=== PATIENT | male | born 1950 | race Caucasian/White ===

== ENCOUNTER 2017-02-17 10:15 | Emergency (ER) | payer MEDICARE, OTHER ==
[~2017-02-17] VITALS: Ht 167.6 cm; Wt 80.0 kg
[~2017-02-17 10:15] MED LIST: [UNRECOGNIZED DRUG - REMARK]
[2017-02-17 10:17] VITALS: BP 179/86; PULSE 58; RESP 20; TEMP 98; O2SAT 97
[2017-02-17] MEDS ORDERED: LISI30TA4 PO ×2 (10:28)
--- NOTE | 2017-02-17 10:38 | PD ---
HPI Chief Complaint: GI Complaint Time Seen by Provider: 10:38 Travel History International Travel<30 days: No Contact w/Intl Traveler<30days: No Traveled to known affect area: No History of Present Illness HPI 66-year-old male came to the emergency room with history of vomiting for past 3 days. Patient says almost every time he eats after an hour he vomits it out. He has been able to keep some fluid and some solids down. However since it's not getting better he decided to come to the emergency room. He does not have a primary care doctor. No history of diarrhea. He has been having normal bowel movement. Vital signs are stable. No history of blood in his vomit. [facility] Past Medical History Narrative Medical List of his past medical, surgical, social and family history is reviewed from the nursing note Diminished Hearing: No Seizures: Yes Tetanus Vaccination: > 5 Years Past Surgical History Abdominal Surgery: Yes (RT HERNIA REPAIR) Social History Alcohol Use: Yes (1 PER 8 MON) Tobacco Use: No Substance Use: Yes (pot) Allergies-Medications (Allergen,Severity, Reaction): Coded Allergies: acetaminophen (Unverified Allergy, Mild, SICK TO MY STOMACH, 02/17/17) Uncoded Allergies: CODEINE (Allergy, Unknown, 02/12/03) Comments List of his allergies reviewed from the nursing note. Reported Meds & Prescriptions Reported Meds & Active Scripts Active Zofran Odt (Ondansetron Odt) 4 Mg Tab 4 Mg SL Q6HR PRN Protonix (Pantoprazole Sodium) 40 Mg Tab 40 Mg PO DAILY [Mri L. Shoulder] MRI OF L. SHOULDER TO EVALUATE FOR POSSIBLE ROTATOR CUFF INJURY Reported Lisinopril 30 Mg Tab 30 Mg PO DAILY Narrative Medication List of his home medications reviewed from the nursing note. Review of Systems Except as stated in HPI: all other systems reviewed are Neg Physical Exam Narrative GENERAL: Awake, alert, mild distress SKIN: Focused skin assessment warm/dry. HEAD: Atraumatic. Normocephalic. EYES: Pupils equal and round. No scleral icterus. No injection or drainage. ENT: No nasal bleeding or discharge. Mucous membrane is dry, tongue coated NECK: Trachea midline. No JVD. CARDIOVASCULAR: Regular rate and rhythm. No murmur appreciated. RESPIRATORY: No accessory muscle use. Clear to auscultation. Breath sounds equal bilaterally. GASTROINTESTINAL: Abdomen soft, non-tender, nondistended. Hepatic and splenic margins not palpable. MUSCULOSKELETAL: No obvious deformities. No clubbing. No cyanosis. No edema. NEUROLOGICAL: Awake and alert. No obvious cranial nerve deficits. Motor grossly within normal limits. Normal speech. PSYCHIATRIC: Appropriate mood and affect; insight and judgment normal. Data Data Last Documented VS Vital Signs Date Time Temp Pulse Resp B/P (MAP) Pulse Ox O2 Delivery O2 Flow Rate FiO2 02/17/17 12:06 02/17/17 10:58 98 02/17/17 10: 98.0 58 20 Room Air Orders Orders Complete Blood Count With Diff (02/17/17 10:40) Comprehensive Metabolic Panel (02/17/17 10:40) Lipase (02/17/17 10:40) Urinalysis - C+S If Indicated (02/17/17 10:40) Ct Abd/Pel W/O Iv Contrast (02/17/17 10:40) Iv Access Insert/Monitor (02/17/17 10:40) Ecg Monitoring (02/17/17 10:40) Oximetry (02/17/17 10:40) Ondansetron Inj (Zofran Inj) (02/17/17 10:45) Sodium Chlor 0.9% 1000 Ml Inj (Ns 1000 M (02/17/17 10:40) Sodium Chloride 0.9% Flush (Ns Flush) (02/17/17 10:45) Electrocardiogram (02/17/17 10:40) Drug Screen, Random Urine (02/17/17 10:45) Pantoprazole (Protonix) (02/17/17 12:00) Labs Laboratory Tests Test 02/17/17 10:55 White Blood Count 9.0 TH/MM3 Red Blood Count 4.44 MIL/MM3 Hemoglobin 14.4 GM/DL Hematocrit 41.4 % Mean Corpuscular Volume 93.2 FL Mean Corpuscular Hemoglobin 32.5 PG Mean Corpuscular Hemoglobin Concent 34.8 % Red Cell Distribution Width 13.8 % Platelet Count 183 TH/MM3 Mean Platelet Volume 9.3 FL Neutrophils (%) (Auto) 61.5 % Lymphocytes (%) (Auto) 28.4 % Monocytes (%) (Auto) 7.2 % Eosinophils (%) (Auto) 2.3 % Basophils (%) (Auto) 0.6 % Neutrophils # (Auto) 5.5 TH/MM3 Lymphocytes # (Auto) 2.5 TH/MM3 Monocytes # (Auto) 0.6 TH/MM3 Eosinophils # (Auto) 0.2 TH/MM3 Basophils # (Auto) 0.1 TH/MM3 CBC Comment DIFF FINAL Differential Comment Urine Color YELLOW Urine Turbidity CLEAR Urine pH 6.5 Urine Specific [place] 1.026 Urine Protein TRACE mg/dL Urine Glucose (UA) NEG mg/dL Urine Ketones NEG mg/dL Urine Occult Blood NEG Urine Nitrite NEG Urine Bilirubin NEG Urine Urobilinogen 2.0 MG/DL Urine Leukocyte Esterase SMALL Urine RBC 1 /hpf Urine WBC 6 /hpf Urine Mucus FEW /lpf Microscopic Urinalysis Comment CULT NOT INDICATED Blood Urea Nitrogen 13 MG/DL Creatinine 1.21 MG/DL Random Glucose 100 MG/DL Total Protein 6.5 GM/DL Albumin 3.7 GM/DL Calcium Level 8.9 MG/DL Alkaline Phosphatase 56 U/L Aspartate Amino Transf (AST/SGOT) 14 U/L Alanine Aminotransferase (ALT/SGPT) 17 U/L Total Bilirubin 0.4 MG/DL Sodium Level 143 MEQ/L Potassium Level 4.7 MEQ/L Chloride Level 108 MEQ/L Carbon Dioxide Level 31.5 MEQ/L Anion Gap 4 MEQ/L Estimat Glomerular Filtration Rate 60 ML/MIN Lipase 204 U/L Urine Opiates Screen NEG Urine Barbiturates Screen NEG Urine Amphetamines Screen NEG Urine Benzodiazepines Screen NEG Urine Cocaine Screen NEG Urine Cannabinoids Screen POS MDM Medical Decision Making Medical Screen Exam Complete: Yes Emergency Medical Condition: Yes Medical Record Reviewed: Yes Interpretation(s) Twelve-lead EKG was reviewed by me. Normal sinus rhythm, left axis deviation, nonspecific ST-T wave changes, poor R-wave progression, bradycardia. Heart rate of 50 bpm. Differential Diagnosis Gastritis, vomiting, dehydration, small bowel obstruction Narrative Course 11:30 AM CBC is back which is within normal limits. Awaiting for the chemistry and CAT scan to be done and resulted. Patient was given IV fluid and nausea medicine. 11:51 AM all the blood test results, UA and CAT scan report is back. Overall everything seems to be within normal limit. Patient will be referred to a GI specialist. I will discharge him home on a prescription for Protonix. Procedures EKG Prior to Arrival: No Diagnosis Primary Impression: Gastritis Qualified Codes: K29.00 - Acute gastritis without bleeding Referrals: Kika Alvarez MD 1 week Additional Instructions: Please return to the ER if the condition worsens or any other new concerns. To dietary restrictions mainly food that her ascitic like citric food, strawberries , tomatoes, ketchup, vinegar addressing etc. Take the medication as per the prescription direction. Call the GI specialist is name and number been given to you to get an appointment. Follow-up with primary care. Med/Other Pt SpecificInfo: Prescription(s) given Scripts Ondansetron Odt (Zofran Odt) 4 Mg Tab 4 MG SL Q6HR Y for Nausea/Vomiting, #10 TAB 0 Refills Prov: Pablo Brandt MD 02/17/17 Pantoprazole (Protonix) 40 Mg Tab 40 MG PO DAILY for Reflux, #30 TAB 0 Refills Prov: Pablo Brandt MD 02/17/17 Disposition: 01 DISCHARGE HOME Condition: Stable Pablo Brandt MD Feb 17, 2017 10:38
[2017-02-17] MEDS ORDERED: SODIUM CHLOR 0.9% 1000 ML INJ 1,000 ML IV SCH (10:40)
[2017-02-17] MEDS ORDERED: SODIUM CHLORIDE 0.9% FLUSH 10 ML FLUSH IV FLUSH PRN (10:45)
[2017-02-17] MEDS ORDERED: ONDANSETRON HCL 4 MG/2 ML VIAL IVP ONE (10:45)
[2017-02-17 10:58] VITALS: O2SAT 98
[2017-02-17 11:24] LABS: AUTOMATED NEUTROPHIL # 5.5 TH/MM3 (1.8-7.7); BASOPHIL # 0.1 TH/MM3 (0-0.2); BASOPHIL % 0.6 % (0.0-2.0); EOSINOPHIL # 0.2 TH/MM3 (0-0.4); EOSINOPHIL % 2.3 % (0.0-4.0); HEMATOCRIT 41.4 % (39.0-51.0); HEMO FLAGS DIFF FINAL; LYMPH % 28.4 % (9.0-44.0); LYMPHOCYTE # 2.5 TH/MM3 (1.0-4.8); MEAN CELL VOLUME 93.2 FL (80.0-100.0); MEAN CORPUSCULAR HEMOGLOBIN 32.5 PG (27.0-34.0); MEAN CORPUSCULAR HGB CONC 34.8 % (32.0-36.0); MONO % 7.2 % (0.0-8.0); NEUT % 61.5 % (16.0-70.0); PLATELET COUNT 183 TH/MM3 (150-450); RED BLOOD COUNT 4.44 MIL/MM3 (4.50-5.90); RED CELL DISTRIBUTION WIDTH 13.8 % (11.6-17.2)
[2017-02-17 11:31] LABS: BLOOD, URINE NEG (NEG); GLUCOSE,URINE NEG (NEG); KETONE, URINE NEG (NEG); MUCUS URINE FEW /lpf (OCC); NITRITE,URINE NEG (NEG); PH, URINE 6.5 (5.0-8.5); URINE COLOR YELLOW (YELLW/STRAW)
--- NOTE | 2017-02-17 11:31 | RADRPT ---
EXAM DATE/TIME: 02/17/2017 11:00 [place] COMPARISON: No previous studies available for comparison. INDICATIONS : Abdominal pain with nausea and vomiting. ORAL CONTRAST: No oral contrast ingested. RADIATION DOSE: 18.25 CTDIvol (mGy) MEDICAL HISTORY : Seizures. SURGICAL HISTORY : None. ENCOUNTER: Initial ACUITY: 2 days PAIN SCALE: 7/10 LOCATION: abdomen TECHNIQUE: Volumetric scanning of the abdomen and pelvis was performed. Using automated exposure control and ad justment of the mA and/or kV according to patient size, radiation dose was kept as low as reasonably achievable to obtain optimal diagnostic quality images. DICOM format image data is available electro nically for review and comparison. FINDINGS: LOWER LUNGS: Minimal right basilar groundglass opacities likely reflecting atelectasis. Small cyst in the inferior right middle lobe. LIVER: Homogeneous density without lesion. There is no dilation of the biliary tree. No calcified gallston es. SPLEEN: Normal size without lesion. PANCREAS: Within normal limits. KIDNEYS: Kidneys are symmetrical in size without evidence for radiopaque renal calculi or hydronephrosis. Ther e is a 2.2 x 1.9 cm cyst in the posterior mid left kidney. Adjacent to this cyst is a subcentimeter i ndeterminate hyperdense exophytic lesion measuring 7 x 7 x 8 mm. ADRENAL GLANDS: Within normal limits. VASCULAR: There is no aortic aneurysm. BOWEL/MESENTERY: Bowel is decompressed which can accentuate the bowel wall. There is asymmetrical apparent wall thicke gabriel of several loops of proximal jejunum in the left upper quadrant. No significant associated mesen teric stranding. No pneumatosis or bowel obstruction. Remaining portions of bowel are unremarkable. A ppendix is visualized and normal in appearance. ABDOMINAL WALL: Small fat-containing periumbilical anterior abdominal wall hernia. RETROPERITONEUM: There is no lymphadenopathy. BLADDER: Bladder is decompressed. REPRODUCTIVE: Nonspecific enlargement of the prostate containing coarse calcifications. INGUINAL: Small fat-containing left inguinal hernia. MUSCULOSKELETAL: Degenerative spondylosis of the lumbar spine. Heterotopic ossification near the left lateral acetabul um likely due to prior injury. CONCLUSION: 1. Limited evaluation of the bowel secondary to lack of IV or oral contrast. However, there is appare nt mild wall thickening involving several loops of proximal jejunum in the left upper quadrant. No as sociated regional mesenteric inflammation. This finding is nonspecific and may be due to peristalsis. However, differential considerations include inflammatory or infectious enteritis. 2. Subcentimeter indeterminate hyperdense exophytic lesion in the posterior mid left kidney which is too small to fully characterize. Statistically, this reflects a hemorrhagic cyst. 3. Ancillary findings include small fat-containing periumbilical hernia, left renal cysts, and small left fat-containing inguinal hernia. Arcenio Hinton MD on February 17, 2017 at 11:12 Board Certified Radiologist. This report was verified electronically.
[2017-02-17 11:38] LABS: COMMENT (UR) CULT NOT INDICATED; CULTURE IF INDICATED CULT NOT INDICATED
[2017-02-17 11:40] LABS: ALT (GPT) 17 U/L (12-78); ANION GAP 4 MEQ/L (5-15); AST (GOT) 14 U/L (15-37); BICARBONATE 31.5 MEQ/L (21.0-32.0); BLOOD UREA NITROGEN 13 MG/DL (7-18); CHLORIDE 108 MEQ/L (98-107); GLOMERULAR FILTRATION RATE 60 ML/MIN (>89); POTASSIUM 4.7 MEQ/L (3.5-5.1); SODIUM (NA) 143 MEQ/L (136-145)
[2017-02-17 11:42] LABS: ALKALINE PHOSPHATASE 56 U/L (45-117); TOTAL BILIRUBIN ADULT 0.4 MG/DL (0.2-1.0)
[2017-02-17] MEDS ORDERED: PROT40TA PO (11:53)
[2017-02-17] MEDS ORDERED: ZOFR4TAB3 SL (11:53)
[2017-02-17] MEDS ORDERED: PANTOPRAZOLE SOD 40 MG DELAYED RELEASE TAB PO ONE (12:00)
--- NOTE | 2017-02-18 11:38 | EKG ---
Date Performed: 02/17/2017 Time Performed: 11:18:20 PTAGE: 66 years EKG: SINUS BRADYCARDIA PATTERN CONSISTENT WITH PULMONARY DISEASE LEFT ANTERIOR FASCICULAR BLOCK ABNORMAL ECG Compared to prior tracing no significant change PREVIOUS TRACING : 01/17/2003 10.32 DOCTOR: Daniel Galvan Interpretating Date/Time 02/18/2017 11:37:10
[2017-02-22] MEDS ORDERED: LEVE500 PO ×2 (22:49)
== END 2017-02-17 12:07 | disposition home or self-care (01) ==
LOC: NEPD 10:15
DX: K29.00 Acute gastritis without bleeding (principal); R00.1 Bradycardia, unspecified; I44.4 Left anterior fascicular block
CPT/HCPCS: 74176; 80053; 80307; 81001; 83690; 85025; 93005; 96374; 99285; J2405; J7030

== ENCOUNTER 2017-02-22 22:41 | Emergency (ER) | payer MEDICARE, OTHER ==
[~2017-02-22] VITALS: Ht 165.1 cm; Wt 82.0 kg
[~2017-02-22 22:41] MED LIST changes: +LISI30TA4 PO; +PROT40TA PO; +ZOFR4TAB3 SL
[2017-02-22 22:46] VITALS: BP 162/78; PULSE 93; RESP 18; TEMP 98.5; O2SAT 97
[2017-02-22] MEDS ORDERED: LEVE500 PO (22:49)
[2017-02-22] MEDS ORDERED: SODIUM CHLOR 0.9% 1000 ML INJ 1,000 ML IV ONE (22:54)
[2017-02-22] MEDS ORDERED: levETIRAcetam 1000 MG INJ 100 ML IV ONE (23:00)
[2017-02-22] MEDS ORDERED: SODIUM CHLORIDE 0.9% FLUSH 10 ML FLUSH IVF PRN (23:00)
--- NOTE | 2017-02-22 23:03 | PD ---
HPI Chief Complaint: Seizure Time Seen by Provider: 22:48 Travel History International Travel<30 days: No Contact w/Intl Traveler<30days: No Traveled to known affect area: No History of Present Illness HPI Patient 66-year-old male with history of hypertension, seizures currently taking Keppra 500 mg, presents to ER after a seizure episode. As per patient's friend, patient is currently staying with her and sleeps on her floor at the home. Reports that she heard a noise in patients room and went to check up on the patient and noticed that he appeared to be convulsing. Reports that patients seizure episode lasted about 1 to 2 minutes. Reports that he was post ictal for about 5-10 minutes after his seizure. Patient had no incontinence of urine or bowel. Patient this time reports that he has been taking Keppra as scheduled, he does see a neurologist for his seizures, reports that last seizure was a few weeks ago. Patient reports no headache or dizziness at this time, denies any chest pain or shortness of breath. Patient reports that "I really feel fine now." PFSH Past Medical History Diminished Hearing: No Seizures: Yes Tetanus Vaccination: > 5 Years Influenza Vaccination: No Past Surgical History Abdominal Surgery: Yes (RT HERNIA REPAIR) Social History Alcohol Use: Yes Tobacco Use: No Substance Use: Yes (POT) Allergies-Medications (Allergen,Severity, Reaction): Coded Allergies: acetaminophen (Verified Allergy, Mild, SICK TO MY STOMACH, 02/22/17) Uncoded Allergies: CODEINE (Allergy, Unknown, 02/12/03) Reported Meds & Prescriptions Reported Meds & Active Scripts Active Protonix (Pantoprazole Sodium) 40 Mg Tab 40 Mg PO DAILY [Mri L. Shoulder] MRI OF L. SHOULDER TO EVALUATE FOR POSSIBLE ROTATOR CUFF INJURY Reported Keppra (Levetiracetam) 500 Mg Tab 500 Mg PO DAILY Lisinopril 30 Mg Tab 30 Mg PO DAILY Review of Systems General / Constitutional: No: Fever Eyes: No: Visual changes HENT: No: Headaches Cardiovascular: No: Chest Pain or Discomfort Respiratory: No: Shortness of Breath Gastrointestinal: No: Abdominal Pain Genitourinary: No: Dysuria Musculoskeletal: No: Pain Skin: No Rash Neurologic: Positive: Seizures, No: Weakness Psychiatric: No: Depression Endocrine: No: Polydipsia Hematologic/Lymphatic: No: Easy Bruising Physical Exam Narrative GENERAL: NAD, Nontoxic SKIN: Focused skin assessment warm/dry. HEAD: Atraumatic. Normocephalic. EYES: Pupils equal and round. No scleral icterus. No injection or drainage. ENT: No nasal bleeding or discharge. Mucous membranes pink and moist. No bite harris to tongue NECK: Trachea midline. No JVD. CARDIOVASCULAR: Regular rate and rhythm. No murmur appreciated. RESPIRATORY: No accessory muscle use. Clear to auscultation. Breath sounds equal bilaterally. GASTROINTESTINAL: Abdomen soft, non-tender, nondistended. Hepatic and splenic margins not palpable. MUSCULOSKELETAL: No obvious deformities. No clubbing. No cyanosis. No edema. NEUROLOGICAL: Awake and alert. No obvious cranial nerve deficits. Motor grossly within normal limits. Normal speech. CN 2-12 grossly intact with no neurological deficits PSYCHIATRIC: Appropriate mood and affect; insight and judgment normal. Data Data Last Documented VS Vital Signs Date Time Temp Pulse Resp B/P (MAP) Pulse Ox O2 Delivery O2 Flow Rate FiO2 02/22/17 23:48 64 18 148/93 (111) 99 Room Air 02/22/17 22:46 98.5 Orders Orders Complete Blood Count With Diff (02/22/17 22:54) Basic Metabolic Panel (Bmp) (02/22/17 22:54) Ecg Monitoring (02/22/17 22:54) Iv Access Insert/Monitor (02/22/17 22:54) Oximetry (02/22/17 22:54) Sodium Chlor 0.9% 1000 Ml Inj (Ns 1000 M (02/22/17 22:54) Sodium Chloride 0.9% Flush (Ns Flush) (02/22/17 23:00) Urinalysis - C+S If Indicated (02/22/17 22:54) Levetiracetam 1000 Mg Inj (Keppra 1000 M (02/22/17 23:00) ^ Seizure Precautions (02/22/17 22:54) Labs Laboratory Tests Test 02/22/17 22:59 02/22/17 23:00 White Blood Count 10.3 TH/MM3 Red Blood Count 4.49 MIL/MM3 Hemoglobin 14.6 GM/DL Hematocrit 42.4 % Mean Corpuscular Volume 94.2 FL Mean Corpuscular Hemoglobin 32.4 PG Mean Corpuscular Hemoglobin Concent 34.4 % Red Cell Distribution Width 13.8 % Platelet Count 180 TH/MM3 Mean Platelet Volume 9.4 FL Neutrophils (%) (Auto) 67.1 % Lymphocytes (%) (Auto) 23.1 % Monocytes (%) (Auto) 7.0 % Eosinophils (%) (Auto) 2.1 % Basophils (%) (Auto) 0.7 % Neutrophils # (Auto) 6.9 TH/MM3 Lymphocytes # (Auto) 2.4 TH/MM3 Monocytes # (Auto) 0.7 TH/MM3 Eosinophils # (Auto) 0.2 TH/MM3 Basophils # (Auto) 0.1 TH/MM3 CBC Comment DIFF FINAL Differential Comment Blood Urea Nitrogen 16 MG/DL Creatinine 1.47 MG/DL Random Glucose 85 MG/DL Calcium Level 9.0 MG/DL Sodium Level 142 MEQ/L Potassium Level 4.0 MEQ/L Chloride Level 109 MEQ/L Carbon Dioxide Level 21.1 MEQ/L Anion Gap 12 MEQ/L Estimat Glomerular Filtration Rate 48 ML/MIN Urine Color YELLOW Urine Turbidity CLEAR Urine pH 5.5 Urine Specific [place] 1.024 Urine Protein 30 mg/dL Urine Glucose (UA) TRACE mg/dL Urine Ketones 10 mg/dL Urine Occult Blood NEG Urine Nitrite NEG Urine Bilirubin NEG Urine Urobilinogen 2.0 MG/DL Urine Leukocyte Esterase NEG Urine RBC 1 /hpf Urine WBC 4 /hpf Microscopic Urinalysis Comment CULT NOT INDICATED MDM Medical Decision Making Medical Screen Exam Complete: Yes Emergency Medical Condition: Yes Interpretation(s) EKG at 2259: NSR at 80bpm, qt/qtc: 363/399, no acute st or t wave changes Vital Signs Date Time Temp Pulse Resp B/P (MAP) Pulse Ox O2 Delivery O2 Flow Rate FiO2 02/22/17 22:46 98.5 93 18 162/78 (691) 97 Differential Diagnosis Differential includes seizure, electrolyte abnormality Narrative Course Patient is a 66-year-old male who presents to emergency room for evaluation of seizure episode. Patient is a known epileptic, currently takes Keppra 500 mg daily. As per patient's friend, patient had a seizure which lasted about 1-2 minutes today, that he was postictal for about 5-10 minutes after his seizure. Patient with no incontinence of bowel or urine after seizure episode. Patient was found on the ground where he was sleeping during his seizure. Patient is alert and oriented 3 this time, patient with no complaints. Patient with no neurological deficits at this time. Patient with most likely recurrent seizure episode. Plan to obtain basic labs, will monitor on cardiac/vascular sonographer. Keppra load ordered. Patient placed on seizure precautions Vital Signs Date Time Temp Pulse Resp B/P (MAP) Pulse Ox O2 Delivery O2 Flow Rate FiO2 02/22/17 23:48 64 18 148/93 (111) 99 Room Air 02/22/17 23:07 18 99 Room Air 02/22/17 22:46 98.5 93 18 162/78 (106) 97 Laboratory Tests Test 02/22/17 22:59 02/22/17 23:00 White Blood Count 10.3 TH/MM3 (4.0-11.0) Red Blood Count 4.49 MIL/MM3 (4.50-5.90) Hemoglobin 14.6 GM/DL (13.0-17.0) Hematocrit 42.4 % (39.0-51.0) Mean Corpuscular Volume 94.2 FL (80.0-100.0) Mean Corpuscular Hemoglobin 32.4 PG (27.0-34.0) Mean Corpuscular Hemoglobin Concent 34.4 % (32.0-36.0) Red Cell Distribution Width 13.8 % (11.6-17.2) Platelet Count 180 TH/MM3 (150-450) Mean Platelet Volume 9.4 FL (7.0-11.0) Neutrophils (%) (Auto) 67.1 % (16.0-70.0) Lymphocytes (%) (Auto) 23.1 % (9.0-44.0) Monocytes (%) (Auto) 7.0 % (0.0-8.0) Eosinophils (%) (Auto) 2.1 % (0.0-4.0) Basophils (%) (Auto) 0.7 % (0.0-2.0) Neutrophils # (Auto) 6.9 TH/MM3 (1.8-7.7) Lymphocytes # (Auto) 2.4 TH/MM3 (1.0-4.8) Monocytes # (Auto) 0.7 TH/MM3 (0-0.9) Eosinophils # (Auto) 0.2 TH/MM3 (0-0.4) Basophils # (Auto) 0.1 TH/MM3 (0-0.2) CBC Comment DIFF FINAL Differential Comment Blood Urea Nitrogen 16 MG/DL (7-18) Creatinine 1.47 MG/DL (0.60-1.30) Random Glucose 85 MG/DL (74-106) Calcium Level 9.0 MG/DL (8.5-10.1) Sodium Level 142 MEQ/L (136-145) Potassium Level 4.0 MEQ/L (3.5-5.1) Chloride Level 109 MEQ/L (98-107) Carbon Dioxide Level 21.1 MEQ/L (21.0-32.0) Anion Gap 12 MEQ/L (5-15) Estimat Glomerular Filtration Rate 48 ML/MIN (>89) Urine Color YELLOW (YELLW/STRAW) Urine Turbidity CLEAR (CLEAR) Urine pH 5.5 (5.0-8.5) Urine Specific [place] 1.024 (1.002-1.035) Urine Protein 30 mg/dL (NEG-TRACE) Urine Glucose (UA) TRACE mg/dL (NEG) Urine Ketones 10 mg/dL (NEG) Urine Occult Blood NEG (NEG) Urine Nitrite NEG (NEG) Urine Bilirubin NEG (NEG) Urine Urobilinogen 2.0 MG/DL (LESS THAN Urine Leukocyte Esterase NEG (NEG) Urine RBC 1 /hpf (0-3) Urine WBC 4 /hpf (0-5) Microscopic Urinalysis Comment CULT NOT INDICATED Patient well appearing, no complaints. I reviewed all labs and studies with patient in detail. Patient will follow up with his neurologist and pcp as outpatient and will return to ER as needed. Diagnosis Primary Impression: Seizure Additional Impression: Renal insufficiency Patient Instructions: General Instructions Additional Instructions: Please follow up with your neurologist as well as your primary care doctor Return to ER as needed Please take all medications as prescribed Disposition: 01 DISCHARGE HOME Condition: Stable Yasmeen Suarez Feb 22, 2017 23:02
[2017-02-22 23:07] VITALS: RESP 18; O2SAT 99
[2017-02-22 23:12] LABS: BLOOD, URINE NEG (NEG); GLUCOSE,URINE TRACE mg/dL (NEG); KETONE, URINE 10 mg/dL (NEG); NITRITE,URINE NEG (NEG); PH, URINE 5.5 (5.0-8.5); URINE COLOR YELLOW (YELLW/STRAW)
[2017-02-22 23:13] LABS: AUTOMATED NEUTROPHIL # 6.9 TH/MM3 (1.8-7.7); BASOPHIL # 0.1 TH/MM3 (0-0.2); BASOPHIL % 0.7 % (0.0-2.0); EOSINOPHIL # 0.2 TH/MM3 (0-0.4); EOSINOPHIL % 2.1 % (0.0-4.0); HEMATOCRIT 42.4 % (39.0-51.0); HEMO FLAGS DIFF FINAL; LYMPH % 23.1 % (9.0-44.0); LYMPHOCYTE # 2.4 TH/MM3 (1.0-4.8); MEAN CELL VOLUME 94.2 FL (80.0-100.0); MEAN CORPUSCULAR HEMOGLOBIN 32.4 PG (27.0-34.0); MEAN CORPUSCULAR HGB CONC 34.4 % (32.0-36.0); NEUT % 67.1 % (16.0-70.0); PLATELET COUNT 180 TH/MM3 (150-450); RED BLOOD COUNT 4.49 MIL/MM3 (4.50-5.90); RED CELL DISTRIBUTION WIDTH 13.8 % (11.6-17.2); WHITE BLOOD COUNT 10.3 TH/MM3 (4.0-11.0)
[2017-02-22 23:26] LABS: BICARBONATE 21.1 MEQ/L (21.0-32.0)
[2017-02-22 23:27] LABS: COMMENT (UR) CULT NOT INDICATED; CULTURE IF INDICATED CULT NOT INDICATED
[2017-02-22 23:48] VITALS: BP 148/93; PULSE 64; RESP 18; O2SAT 99
[2017-02-24] MEDS ORDERED: LEVE250 PO (16:35)
== END 2017-02-23 01:17 | disposition home or self-care (01) ==
LOC: NEPC 22:41
DX: R56.9 Unspecified convulsions (principal); N28.9 Disorder of kidney and ureter, unspecified; Z79.899 Other long term (current) drug therapy
CPT/HCPCS: 80048; 81001; 85025; 96365; 99283; J1953; J7030

== ENCOUNTER 2017-02-23 03:00 | Inpatient (IN) | payer MEDICARE, OTHER ==
[2017-02-23] VITALS (11 sets, daily range): BP systolic 126–142; BP diastolic 63–79; PULSE 52–92; RESP 16–22; TEMP 98–98.7; O2SAT 88–97
[~2017-02-23 03:00] MED LIST changes: +LEVE500 PO
[2017-02-23] MEDS ORDERED: SODIUM CHLOR 0.9% 1000 ML INJ 1,000 ML IV ONE (03:06)
[2017-02-23] MEDS ORDERED: SODIUM CHLORIDE 0.9% FLUSH 10 ML FLUSH IVF PRN (03:15)
[2017-02-23] MEDS ORDERED: LORazepam 2 MG/ML VIAL IVS ONE (03:15)
[2017-02-23] MEDS ORDERED: ONDANSETRON HCL 4 MG/2 ML VIAL IV PUSH ONE (03:15)
--- NOTE | 2017-02-23 03:27 | PD ---
HPI Chief Complaint: Seizure Time Seen by Provider: 03:06 Travel History International Travel<30 days: No Contact w/Intl Traveler<30days: No Traveled to known affect area: No History of Present Illness HPI Patient is a 66-year-old male who returns to emergency room after being discharged from the ER tonight after he had a seizure episode. During patient' s initial ER visit, he was observed for 2.5 hours and was given Keppra bolus as patient has history of seizures and takes Keppra 500mg daily. Patient returns to emergency room after he was discharged - EMS reports that he was found on the couch seizing. Reports that patient had a seizure which lasted for about 4- 5 minutes. He was initally postictal after seizure episode and then became violent. Patient at this time did have episode of urinary and incontinence of bowel. Patient now with no complaints at this time. He is alert and oriented x 3. PFSH Past Medical History Diminished Hearing: No Seizures: Yes Past Surgical History Abdominal Surgery: Yes (RT HERNIA REPAIR) Social History Alcohol Use: Yes Tobacco Use: No Substance Use: Yes (POT) Allergies-Medications (Allergen,Severity, Reaction): Coded Allergies: acetaminophen (Verified Allergy, Mild, SICK TO MY STOMACH, 02/23/17) Uncoded Allergies: CODEINE (Allergy, Unknown, 02/12/03) Reported Meds & Prescriptions Reported Meds & Active Scripts Active Protonix (Pantoprazole Sodium) 40 Mg Tab 40 Mg PO DAILY [Mri L. Shoulder] MRI OF L. SHOULDER TO EVALUATE FOR POSSIBLE ROTATOR CUFF INJURY Reported Keppra (Levetiracetam) 500 Mg Tab 500 Mg PO DAILY Lisinopril 30 Mg Tab 30 Mg PO DAILY Review of Systems General / Constitutional: No: Fever Eyes: No: Visual changes HENT: No: Headaches Cardiovascular: No: Chest Pain or Discomfort Respiratory: No: Shortness of Breath Gastrointestinal: Positive: Nausea, Vomiting, No: Abdominal Pain Genitourinary: No: Dysuria Musculoskeletal: No: Pain Skin: No Rash Neurologic: Positive: Seizures, No: Weakness Psychiatric: No: Depression Endocrine: No: Polydipsia Hematologic/Lymphatic: No: Easy Bruising Physical Exam Narrative GENERAL: mild distress SKIN: Focused skin assessment warm/dry. HEAD: Atraumatic. Normocephalic. EYES: Pupils equal and round. No scleral icterus. No injection or drainage. ENT: No nasal bleeding or discharge. Mucous membranes pink and moist. NECK: Trachea midline. No JVD. CARDIOVASCULAR: Regular rate and rhythm. No murmur appreciated. RESPIRATORY: No accessory muscle use. Clear to auscultation. Breath sounds equal bilaterally. GASTROINTESTINAL: Abdomen soft, non-tender, nondistended. Hepatic and splenic margins not palpable. MUSCULOSKELETAL: No obvious deformities. No clubbing. No cyanosis. No edema. NEUROLOGICAL: Awake and alert. No obvious cranial nerve deficits. Motor grossly within normal limits. Normal speech. Data Data Last Documented VS Vital Signs Date Time Temp Pulse Resp B/P (MAP) Pulse Ox O2 Delivery O2 Flow Rate FiO2 02/23/17 03:13 93 Nasal Cannula 4.00 02/23/17 03:06 98.1 92 20 131/79 (96) Orders Orders Electrocardiogram (02/23/17 ) Ct Brain W/O Iv Contrast(Rout) (02/23/17 ) Blood Glucose (02/23/17 03:06) Ecg Monitoring (02/23/17 03:06) Iv Access Insert/Monitor (02/23/17 03:06) Oximetry (02/23/17 03:06) Sodium Chlor 0.9% 1000 Ml Inj (Ns 1000 M (02/23/17 03:06) Sodium Chloride 0.9% Flush (Ns Flush) (02/23/17 03:15) Lorazepam Inj (Ativan Inj) (02/23/17 03:15) Drug Screen, Random Urine (02/23/17 03:10) Ondansetron Inj (Zofran Inj) (02/23/17 03:15) Chest, Single Ap (02/23/17 03:15) MDM Medical Decision Making Medical Screen Exam Complete: Yes Emergency Medical Condition: Yes Medical Record Reviewed: Yes Interpretation(s) Vital Signs Date Time Temp Pulse Resp B/P (MAP) Pulse Ox O2 Delivery O2 Flow Rate FiO2 02/23/17 03:13 93 Nasal Cannula 4.00 02/23/17 03:06 98.1 92 20 131/79 (96) 91 Differential Diagnosis Differential includes seizure episode Narrative Course 66-year-old male who returns to emergency room after he had another seizure while at home, seizure lasted about 4-5 minutes this time followed by a postictal state. patient was just discharged from the hospital tonight after workup for seizure. Plan to obtain CT of the head, x-ray chest, will give a dose of IV Ativan. Seizure precaution initiated. Patient will require admission to the hospital this time. Last Impressions Chest X-Ray 02/23/17 0315 Signed Impressions: Service Date/Time: Thursday, February 23, 2017 03:20 - CONCLUSION: Bilateral pulmonary infiltrates particularly on the left. Matias Rivera Jr., MD Head CT 02/23/17 0000 Signed Impressions: Service Date/Time: Thursday, February 23, 2017 03:25 - CONCLUSION: Small solitary focus of high attenuation involving the left occipital lobe. This could relate to a tiny intraparenchymal hemorrhage. Short term followup CT brain suggested. Matias Rivera Jr., MD case reviewed with Dr. Arriola who accepts pt to service. Critical Care Narrative Aggregate critical care time was 30 minutes. Time to perform other separately billable procedures was not included in the critical care time. My time did not include minutes spent treating any other patients simultaneously or on activities that did not directly contribute to the patient's treatment. The services I provided to this patient were to treat and/or prevent clinically significant deterioration that could result in: , decompensation, deterioration I provided critical care services requiring my management, as noted below: Chart data review, documentation time, medication orders and management, vital sign assessments/reviewing monitor data, ordering and reviewing lab tests, ordering and interpreting/reviewing x-rays and diagnostic studies, care of the patient and discussion of the patient with the admitting physicians. Diagnosis Primary Impression: Seizure Additional Impressions: Status epilepticus Intracranial hemorrhage Admitting Information Admitting Physician Requests: Yasmeen Argueta DO Feb 23, 2017 03:27
--- NOTE | 2017-02-23 03:46 | RADRPT ---
EXAM DATE/TIME: 02/23/2017 03:20 [facility] COMPARISON: No previous studies available for comparison. INDICATIONS : Short of breath. MEDICAL HISTORY : None. SURGICAL HISTORY : None. ENCOUNTER: Initial ACUITY: 1 day PAIN SCORE: 0/10 LOCATION: Bilateral chest FINDINGS: A single portable frontal view of the chest shows diffuse mild parenchymal infiltrate involving the l eft lung. Less pronounced involvement involving the right upper lobe. Right lung base is clear. No ef fusions. Heart is normal in size. A degenerating spine. CONCLUSION: Bilateral pulmonary infiltrates particularly on the left. Matias Rivera Jr., MD on February 23, 2017 at 3:44 Board Certified Radiologist. This report was verified electronically.
--- NOTE | 2017-02-23 03:48 | RADRPT ---
EXAM DATE/TIME: 02/23/2017 03:25 [facility] COMPARISON: No previous studies available for comparison. INDICATIONS : Altered mental status; possible seizure. RADIATION DOSE: 56.35 CTDIvol (mGy) MEDICAL HISTORY : Seizures. SURGICAL HISTORY : Inguinal hernia repair. ENCOUNTER: Initial ACUITY: 1 day PAIN SCALE: 0/10 LOCATION: cranial TECHNIQUE: Multiple contiguous axial images were obtained of the head. Using automated exposure control and adj ustment of the mA and/or kV according to patient size, radiation dose was kept as low as reasonably a chievable to obtain optimal diagnostic quality images. DICOM format image data is available electro nically for review and comparison. FINDINGS: There is a solitary focus on a single image involving the left occipital lobe. This is high in attenu ation and measures 1 cm in size. The remaining brain parenchyma shows normal attenuation. Ventricles are normal in size. Calvarium is intact. Paranasal sinuses and mastoid air cells are clear. CONCLUSION: Small solitary focus of high attenuation involving the left occipital lobe. This could relate to a ti ny intraparenchymal hemorrhage. Short term followup CT brain suggested. Matias Rivera Jr., MD on February 23, 2017 at 3:45 Board Certified Radiologist. This report was verified electronically.
[2017-02-23] MEDS ORDERED: LACTULOSE SYRUP 20 GM/30 ML CUP PO PRN (04:15)
[2017-02-23] MEDS ORDERED: LORazepam 2 MG/ML VIAL IV PUSH PRN (04:15)
[2017-02-23] MEDS ORDERED: MORPHINE SULFATE 4 MG/ML INJ IV PUSH PRN (04:15)
[2017-02-23] MEDS ORDERED: MISCELLANEOUS NURSING INFORMATION XX SCH (04:15)
[2017-02-23] MEDS ORDERED: MAGNESIUM HYDROXIDE SUSP 30 ML CUP PO PRN (04:15)
[2017-02-23] MEDS ORDERED: ACETAMINOPHEN 325 MG TAB PO PRN (04:15)
[2017-02-23] MEDS ORDERED: RESP: ALBUTEROL 2.5 MG/IPRATROPIUM 0.5 MG NEB (PRN) INH (04:15)
[2017-02-23] MEDS ORDERED: AZITHROMYCIN INJ 500 MG in SODIUM CHLOR 0.9% 250 ML INJ 250 ML IV ONE (04:15)
[2017-02-23] MEDS ORDERED: SODIUM CHLORIDE 0.9% FLUSH 10 ML FLUSH PRN (04:15)
[2017-02-23] MEDS ORDERED: SENNOSIDES 8.6 MG TAB PO PRN (04:15)
[2017-02-23] MEDS ORDERED: BISACODYL 10 MG SUPP RECTAL PRN (04:15)
[2017-02-23] MEDS ORDERED: FOSPHENYTOIN INJ 1,000 MGPE in SODIUM CHLORIDE 0.9% INJ 50 ML IV ONE (04:15)
[2017-02-23] MEDS ORDERED: TEMAZEPAM 15 MG CAP PO PRN (04:15)
[2017-02-23] MEDS ORDERED: cefTRIAXone INJ 1,000 MG in SODIUM CHLORIDE 0.9% INJ 100 ML IV ONE (04:15)
[2017-02-23] MEDS ORDERED: CHLORHEXIDINE GLUCONATE 2 % 1 PACK (2 CLOTHS) TOP PRN (04:15)
[2017-02-23] MEDS ORDERED: hydrALAZINE HCL 20 MG/ML VIAL IV PUSH PRN (04:30)
--- NOTE | 2017-02-23 04:38 | HHI.HP ---
HPI Service Critical Care Medicine Primary Care Physician Unknown Admission Diagnosis Status epilepticus, ich Diagnosis: Travel History International Travel<30 Days: No Contact w/Intl Traveler <30 Da: No Traveled to Known Affected Are: No History of Present Illness 66-year-old male was seen in emergency room yesterday for episodes of seizure but returns to emergency room after being discharged from the ER tonight after he had a seizure episode. He comes back with another seizure. During patient' s initial ER visit, he was observed for 2.5 hours and was given Keppra bolus as patient has history of seizures and takes Keppra 500mg daily. Patient returns to emergency room after he was discharged - EMS reports that he was found on the couch seizing. Reports that patient had a seizure which lasted for about 4- 5 minutes. Patient at this time did have episode of urinary and incontinence of bowel. Patient now with no complaints at this time. He is alert and oriented x 3. Review of Systems Constitutional: DENIES: Diaphoretic episodes, Fatigue, Fever, Weight gain, Weight loss, Chills, Dizziness, Change in appetite, Night Sweats Endocrine: DENIES: Heat/cold intolerance, Polydipsia, Polyuria, Polyphagia Eyes: DENIES: Blurred vision, Diplopia, Eye inflammation, Eye pain, Vision loss , Photosensitivity, Double Vision Ears, nose, mouth, throat: DENIES: Tinnitus, Hearing loss, Vertigo, Nasal discharge, Oral lesions, Throat pain, Hoarseness, Ear Pain, Running Nose, Epistaxis, Sinus Pain, Toothache, Odynophagia Respiratory: DENIES: Apneas, Cough, Snoring, Wheezing, Hemoptysis, Sputum production, Shortness of breath Cardiovascular: DENIES: Chest pain, Palpitations, Syncope, Dyspnea on Exertion , PND, Lower Extremity Edema, Orthopnea, Claudication Gastrointestinal: DENIES: Abdominal pain, Black stools, Bloody stools, Constipation, Diarrhea, Nausea, Vomiting, Difficulty Swallowing, Anorexia Genitourinary: DENIES: Sexual dysfunction, Urinary frequency, Urinary incontinence, Urgency, Hematuria, Dysuria, Nocturia, Penile Discharge, Testicular Pain, Testicular Swelling Musculoskeletal: DENIES: Joint pain, Muscle aches, Stiffness, Joint Swelling, Back pain, Neck pain Integumentary: DENIES: Abnormal pigmentation, Nail changes, Pruritus, Rash Hematologic/lymphatic: DENIES: Bruising, Lymphadenopathy Immunologic/allergic: DENIES: Eczema, Urticaria Neurologic: COMPLAINS OF: Seizures, DENIES: Abnormal gait, Headache, Localized weakness, Paresthesias, Speech Problems, Tremor, Poor Balance Psychiatric: DENIES: Anxiety, Confusion, Mood changes, Depression, Hallucinations, Agitation, Suicidal Ideation, Homicidal Ideation, Delusions ROS Unobtainable patient still postictal Past Family Social History Allergies: Coded Allergies: acetaminophen (Verified Allergy, Mild, SICK TO MY STOMACH, 02/23/17) Uncoded Allergies: CODEINE (Allergy, Unknown, 02/12/03) Past Medical History Seizure Per chart review he was supposed to see hematology oncology 2010 however unable to obtain for what reason Past Surgical History Inguinal hernia repair 2 Reported Medications Current Medications Medications (Trade) Dose Ordered Sig/Donte Route PRN Reason Start Time Stop Time Status Last Admin Dose Admin Ceftriaxone Sodium 1000 mg/ Sodium Chloride 100 ml @ 200 mls/hr ONCE ONCE IV 02/23/17 04:15 02/23/17 04:44 Azithromycin 500 mg/Sodium Chloride 250 ml @ 250 mls/hr ONCE ONCE IV 02/23/17 04:15 02/23/17 05:14 Levetriacetam (Keppra) 500 mg DAILY PO 02/23/17 09:00 Pantoprazole Sodium (Protonix) 40 mg DAILY PO 02/23/17 09:00 Sodium Chloride 1,000 ml @ 84 mls/hr [id number] IV 02/23/17 04:10 Sodium Chloride (NS Flush) 2 ml UNSCH PRN .XX FLUSH AFTER USING IV ACCESS 02/23/17 04:15 Sodium Chloride (NS Flush) 2 ml BID .XX 02/23/17 09:00 Acetaminophen (Tylenol) 650 mg Q6H PRN PO PAIN 1-10 AND/OR FEVER >101F 02/23/17 04:15 Morphine Sulfate (Morphine Inj) 2 mg Q2H PRN IV PUSH PAIN SCALE 6 TO 10 02/23/17 04:15 Lorazepam (Ativan Inj) 1 mg Q1H PRN IV PUSH seizure 02/23/17 04:15 Temazepam (Restoril) 15 mg HS PRN PO INSOMNIA 02/23/17 04:15 Albuterol/ Ipratropium (Duoneb Neb) 1 ampule Q2HR NEB PRN INH WHEEZING 02/23/17 04:15 Miscellaneous Information 1 Q361D XX 02/23/17 04:15 Chlorhexidine Gluconate (Chlorhexidine 2% Cloth) 3 pack Taper DAILY@04 TOP 02/24/17 04:00 02/20/18 03:59 Chlorhexidine Gluconate (Chlorhexidine 2% Cloth) 3 pack UNSCH PRN TOP HYGIENIC CARE 02/23/17 04:15 Senna/Docusate Sodium (Barb-Colace) 1 tab BID PO 02/23/17 09:00 Magnesium Hydroxide (Milk Of Magnesia Liq) 30 ml Q12H PRN PO MILD - MODERATE CONSTIPATION 02/23/17 04:15 Sennosides (Senokot) 17.2 mg Q12H PRN PO MODERATE - SEVERE CONSTIPATION 02/23/17 04:15 Bisacodyl (Dulcolax Supp) 10 mg DAILY PRN RECTAL SEVERE CONSITIPATION 02/23/17 04:15 Lactulose (Lactulose Liq) 30 ml DAILY PRN PO SEVERE CONSITIPATION 02/23/17 04:15 Hydralazine HCl (Apresoline Inj) 20 mg Q4H PRN IV PUSH SBP>140, DBP>90 02/23/17 04:30 Active Ordered Medications Current Medications Medications (Trade) Dose Ordered Sig/Donte Route PRN Reason Start Time Stop Time Status Last Admin Dose Admin Ceftriaxone Sodium 1000 mg/ Sodium Chloride 100 ml @ 200 mls/hr ONCE ONCE IV 02/23/17 04:15 02/23/17 04:44 Azithromycin 500 mg/Sodium Chloride 250 ml @ 250 mls/hr ONCE ONCE IV 02/23/17 04:15 02/23/17 05:14 Levetriacetam (Keppra) 500 mg DAILY PO 02/23/17 09:00 Pantoprazole Sodium (Protonix) 40 mg DAILY PO 02/23/17 09:00 Sodium Chloride 1,000 ml @ 84 mls/hr [id number] IV 02/23/17 04:10 Sodium Chloride (NS Flush) 2 ml UNSCH PRN .XX FLUSH AFTER USING IV ACCESS 02/23/17 04:15 Sodium Chloride (NS Flush) 2 ml BID .XX 02/23/17 09:00 Acetaminophen (Tylenol) 650 mg Q6H PRN PO PAIN 1-10 AND/OR FEVER >101F 02/23/17 04:15 Morphine Sulfate (Morphine Inj) 2 mg Q2H PRN IV PUSH PAIN SCALE 6 TO 10 02/23/17 04:15 Lorazepam (Ativan Inj) 1 mg Q1H PRN IV PUSH seizure 02/23/17 04:15 Temazepam (Restoril) 15 mg HS PRN PO INSOMNIA 02/23/17 04:15 Albuterol/ Ipratropium (Duoneb Neb) 1 ampule Q2HR NEB PRN INH WHEEZING 02/23/17 04:15 Miscellaneous Information 1 Q361D XX 02/23/17 04:15 Chlorhexidine Gluconate (Chlorhexidine 2% Cloth) 3 pack Taper DAILY@04 TOP 02/24/17 04:00 02/20/18 03:59 Chlorhexidine Gluconate (Chlorhexidine 2% Cloth) 3 pack UNSCH PRN TOP HYGIENIC CARE 02/23/17 04:15 Senna/Docusate Sodium (Barb-Colace) 1 tab BID PO 02/23/17 09:00 Magnesium Hydroxide (Milk Of Magnesia Liq) 30 ml Q12H PRN PO MILD - MODERATE CONSTIPATION 02/23/17 04:15 Sennosides (Senokot) 17.2 mg Q12H PRN PO MODERATE - SEVERE CONSTIPATION 02/23/17 04:15 Bisacodyl (Dulcolax Supp) 10 mg DAILY PRN RECTAL SEVERE CONSITIPATION 02/23/17 04:15 Lactulose (Lactulose Liq) 30 ml DAILY PRN PO SEVERE CONSITIPATION 02/23/17 04:15 Hydralazine HCl (Apresoline Inj) 20 mg Q4H PRN IV PUSH SBP>140, DBP>90 02/23/17 04:30 Family History No family history significant stroke or seizure disorder Social History Denies tobacco alcohol or illicit drug abuse Physical Exam Vital Signs Vital Signs Date Time Temp Pulse Resp B/P (MAP) Pulse Ox O2 Delivery O2 Flow Rate FiO2 02/23/17 03:13 93 Nasal Cannula 4.00 02/23/17 03:06 98.1 92 20 131/79 (96) 91 02/23/17 03:05 88 Room Air 02/23/17 03:05 93 Nasal Cannula 4.00 Physical Exam GENERAL: Well-nourished, well-developed elderly appearing patient. SKIN: Warm and dry. HEAD: Normocephalic. EYES: No scleral icterus. No injection or drainage. NECK: Supple, trachea midline. No JVD or lymphadenopathy. CARDIOVASCULAR: Regular rate and rhythm without murmurs, gallops, or rubs. RESPIRATORY: Breath sounds equal bilaterally. No accessory muscle use. GASTROINTESTINAL: Abdomen soft, non-tender, nondistended. MUSCULOSKELETAL: No cyanosis, or edema. BACK: Nontender without obvious deformity. NEURO EXAM: GCS: M 6 V 5 E 3 Mental Status: The patient is alert and oriented to person, place, and time with normal speech. Cranial Nerves: Visual acuity intact bilaterally. Visual wright normal in all quadrants. Pupils are round, reactive to light. Imaging Last 24 hours Impressions Chest X-Ray 02/23/17 0315 Signed Impressions: Service Date/Time: Thursday, February 23, 2017 03:20 - CONCLUSION: Bilateral pulmonary infiltrates particularly on the left. Matias Rivera Jr., MD Head CT 02/23/17 0000 Signed Impressions: Service Date/Time: Thursday, February 23, 2017 03:25 - CONCLUSION: Small solitary focus of high attenuation involving the left occipital lobe. This could relate to a tiny intraparenchymal hemorrhage. Short term followup CT brain suggested. Matias Rivera Jr., MD [place] VTE Risk Assessment Caprini VTE Risk Assessment: No/Low Risk (score <= 1) Caprini Risk Assessment Model Point Value = 1 Point Value = 2 Point Value = 3 Point Value = 5 Age 41-60 Minor surgery BMI > 25 kg/m2 Swollen legs Varicose veins or History of unexplained or recurrent spontaneous Oral contraceptives or hormone replacement Sepsis (< 1 month) Serious lung disease, including pneumonia (< 1 month) Abnormal pulmonary function Acute myocardial infarction Congestive heart failure (< 1 month) History of inflammatory bowel disease Medical patient at bed rest Age 61-74 Arthroscopic surgery Major open surgery (> 45 min) Laparoscopic surgery (> 45 min) Malignancy Confined to bed (> 72 hours) Immobilizing plaster cast Central venous access Age >= 75 History of VTE Family history of VTE Factor V Leiden Prothrombin [id number] Lupus anticoagulant Anticardiolipin antibodies Elevated serum homocysteine Heparin-induced thrombocytopenia Other congenital or acquired thrombophilia Stroke (< 1 month) Elective arthroplasty Hip, pelvis, or leg fracture Acute spinal cord injury (< 1 month) Prophylaxis Regimen Total Risk Factor Score Risk Level Prophylaxis Regimen 0-1 Low Early ambulation 2 Moderate Order ONE of the following: *Sequential Compression Device (SCD) *Heparin 5000 units SQ BID 3-4 Higher Order ONE of the following medications: *Heparin 5000 units SQ TID *Enoxaparin/Lovenox 40 mg SQ daily (WT < 150 kg, CrCl > 30 mL/min) *Enoxaparin/Lovenox 30 mg SQ daily (WT < 150 kg, CrCl > 10-29 mL/min) *Enoxaparin/Lovenox 30 mg SQ BID (WT < 150 kg, CrCl > 30 mL/min) AND/OR *Sequential Compression Device (SCD) 5 or more Highest Order ONE of the following medications: *Heparin 5000 units SQ TID (Preferred with Epidurals) *Enoxaparin/Lovenox 40 mg SQ daily (WT < 150 kg, CrCl > 30 mL/min) *Enoxaparin/Lovenox 30 mg SQ daily (WT < 150 kg, CrCl > 10-29 mL/min) *Enoxaparin/Lovenox 30 mg SQ BID (WT < 150 kg, CrCl > 30 mL/min) AND *Sequential Compression Device (SCD) Assessment and Plan Assessment and Plan Seizure - uncontrolled - Loaded with Keppra - Loaded with fosphenytoin - Consult neurology - MRI brain Questionable intraparenchymal bleed - MRI pending - No surgical intervention indicated - Repeat CT if indicated - Keep SBP less than 140 Acute kidney injury - Dehydration - IV fluids resuscitation - Monitor I's and O's - Monitor electrolytes and creatinine levels DVT GI prophylaxis - Teds SCDs - No pharmacological DVT prophylaxis due to possible ICH - Pepcid Critical Care: The total critical care time was 35 minutes. Time to perform other separately billable procedures was not included in the critical care time. Ashutosh Arriola MD Feb 23, 2017 4:38 am
[2017-02-23 04:58] LABS: PROTHROMBIN TIME - PATIENT 10.6 SEC (9.8-11.6)
[2017-02-23] MEDS: SODIUM CHLOR 0.9% 1000 ML INJ 1,000 ML IV SCH ×2 (05:16→21:12)
[2017-02-23] MEDS ORDERED: POTASSIUM CHLOR 20 MEQ PREMIX 100 ML IV PRN ×2 (06:00)
[2017-02-23] MEDS ORDERED: MAGNESIUM OXIDE 400 MG TAB PO PRN (06:00)
[2017-02-23] MEDS ORDERED: SODIUM PHOSPHATE INJ 30 MMOL in SODIUM CHLOR 0.9% 250 ML INJ 240 ML IV PRN (06:00)
[2017-02-23] MEDS ORDERED: POTASSIUM PHOSPHATE MONOBASIC 500 MG TAB PO/TUBE PRN (06:00)
[2017-02-23] MEDS ORDERED: POTASSIUM PHOSPHATE INJ 30 MMOL in SODIUM CHLOR 0.9% 250 ML INJ 250 ML IV PRN (06:00)
[2017-02-23] MEDS ORDERED: POTASSIUM PHOSPHATE MONOBASIC 500 MG TAB PO PRN (06:00)
[2017-02-23] MEDS ORDERED: POTASSIUM CHLORIDE 25 MEQ EFFERVESCENT TAB PO PRN (06:00)
[2017-02-23] MEDS ORDERED: MAGNESIUM SULFATE INJ 2 GM in SODIUM CHLORIDE 0.9% INJ 96 ML IV PRN (06:00)
[2017-02-23] MEDS ORDERED: POTASSIUM CHLOR 40 MEQ PREMIX 100 ML IV PRN ×2 (06:00)
[2017-02-23] MEDS ORDERED: MAGNESIUM SULFATE INJ 4 GM in SODIUM CHLORIDE 0.9% INJ 92 ML IV PRN (06:00)
[2017-02-23] MEDS ORDERED: levETIRAcetam 500 MG TAB PO SCH (09:00)
[2017-02-23] MEDS: PANTOPRAZOLE SOD 40 MG DELAYED RELEASE TAB PO SCH (09:29)
[2017-02-23] MEDS: DOCUSATE SODIUM 50 MG/SENNA 8.6 MG TAB PO SCH ×2 (09:29→21:11)
[2017-02-23] MEDS: SODIUM CHLORIDE 0.9% FLUSH 10 ML FLUSH SCH ×2 (09:29→21:12)
[2017-02-23] MEDS ORDERED: levETIRAcetam 250 MG TAB PO ONE (10:00)
--- NOTE | 2017-02-23 10:48 | RADRPT ---
EXAM DATE/TIME: 02/23/2017 09:57 [facility] COMPARISON: No previous studies available for comparison. INDICATIONS : Seizures. MEDICAL HISTORY : Hypertension. Seizures. SURGICAL HISTORY : hernia repair ENCOUNTER: Subsequent ACUITY: 1 day PAIN SCORE: 0/10 LOCATION: cranial TECHNIQUE: Multiplanar, multisequence MRI of the brain was performed without contrast. FINDINGS: CEREBRUM: Ventricles are of normal size. Scattered minimal periventricular white matter changes are noted. Th ere are no extra-axial fluid collections appreciated. There is no parenchymal hemorrhage. There is no restricted diffusion to suggest ischemia. Temporal lobes are symmetric. I don't see as seizure focus. POSTERIOR FOSSA: The cerebellum and brainstem are intact. The 4th ventricle is midline. The cerebellopontine angle is unremarkable. The cerebellar tonsils are normal in position. EXTRACRANIAL: The visualized portions of the orbits and paranasal sinuses are unremarkable. CONCLUSION: Negative MRI of the brain. Seizure focus is not identified. Lack of intravenous gadolinium does limit sensitivity for subtle inflammatory processes such as encep halitis. Correlation with EEG is suggested. Marcus Dale MD FACR on February 23, 2017 at 10:44 Board Certified Radiologist. This report was verified electronically.
--- NOTE | 2017-02-23 14:07 | MB ---
cc: YENNI ESTEBAN MD DATE OF CONSULTATION: 02/23/2017 REASON FOR CONSULTATION Seizures. HISTORY OF PRESENT ILLNESS Mr. Garza is a 66-year-old male who presented to the emergency room at [facility] yesterday for a seizure episode that he was treated for, discharged, and then came back for another seizure episode. The patient takes Keppra 500 mg twice daily. He states that he is noncompliant with the dose and he reports that he only had four episodes in his life. The first one was 2013 when he was very upset about the of his daughter who also had seizures, " of seizures." The other three episodes always were related to stressful events. 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 The patient as per EMS report was found on his couch seizing. The seizure lasted 4-5 minutes and he had urinary and bowel incontinence. REVIEW OF SYSTEMS A 12-point review of systems is negative except for what is stated in the HPI. PAST MEDICAL HISTORY Seizures. PAST SURGICAL HISTORY Inguinal hernia repair. ALLERGIES 1. ACETAMINOPHEN. 2. CODEINE. MEDICATIONS 1. Protonix. 2. Keppra. 3. Lisinopril. FAMILY HISTORY Seizures. SOCIAL HISTORY Denies alcohol, smoking or illicit drug abuse. PHYSICAL EXAMINATION GENERAL: Awake, alert, oriented to time, person and place, not in acute distress HEENT: Atraumatic, normocephalic. Intact hearing. Intact vision. NECK: Supple. No signs of meningeal irritation. No carotid bruit. HEART: Regular rate and rhythm. LUNGS: Clear to auscultation. No wheezes. ABDOMEN: Soft, nontender, nondistended. EXTREMITIES: No cyanosis or edema. Moves all extremities equally. NEUROLOGIC: Awake, alert, oriented to time, person and place. No dysarthria. No dysphasia. Cranial nerves II-XII are grossly intact. Upper and lower extremities are 5/5 bilateral and symmetrical. Sensation is intact bilaterally throughout. Intact cerebellar signs. Reflexes 2+ bilateral and symmetrical. Plantars are bilaterally downgoing. IMAGING - Head CT scan without contrast revealed small solitary focus of high attenuation involving the left occipital lobe. This could relate to a tiny intraparenchymal hemorrhage. - MRI of the brain without contrast was negative. Seizure focus not identified. Lack of intravenous gadolinium does limit the sensitivity for subtle inflammatory process such as encephalitis. Correlation with EEG is suggested LABORATORY WBC 10.3, hemoglobin 4.6. Sodium 142, potassium 4. Toxicology UDS positive for cannabinoids. IMPRESSION 1. Breakthrough seizures. 2. History of seizures. 3. Questionable compliance with medication. PLAN 1. Neuro-checks q.1h. 2. EEG. 3. Increase Keppra dose to 750 mg twice daily. 4. Seizure precautions. 5. DVT prophylaxis. 6. Ativan 1 mg for seizures lasting greater than three minutes. Thank you for the opportunity to participate in the care of your patient. Yenni Esteban MD RGO/SHARATH /1:20 PM /1:53 PM [facility]
--- NOTE | 2017-02-23 17:35 | MG ---
cc: LILLIAN RENE M.D. Lab No: Date: 02/23/2017 Age: Sex: M Race: REQUESTING PHYSICIAN Dr. Esteban. INTRODUCTION An EEG was obtained on this 66-year-old patient with a history of seizures. DESCRIPTION The patient is awake and asleep. The EEG shows low amplitude 15-25 per second activity diffusely. There are some theta and delta rhythms during the asleep recording. The sleep stages also include some sleepy spindles and overall symmetrical rhythms. The patient awakens towards the very end of the EEG and some alpha rhythms in the 10-12 per second low to mid amplitude range are seen. Photic stimulation showed some driving response bilaterally. INTERPRETATION Normal predominantly asleep EEG. Lillian Rene MD OFC/KK /5:01 PM /5:22 PM
--- NOTE | 2017-02-23 20:45 | EKG ---
Date Performed: 02/23/2017 Time Performed: 04:06:17 PTAGE: 66 years EKG: Sinus rhythm LEFT ANTERIOR FASCICULAR BLOCK ABNORMAL ECG PREVIOUS TRACING : 02/23/2017 03.56 Compared to prior tracing no significant change DOCTOR: Jaya Whatley Interpretating Date/Time 02/23/2017 20:42:24
--- NOTE | 2017-02-23 20:48 | EKG ---
Date Performed: 02/22/2017 Time Performed: 22:59:23 PTAGE: 66 years EKG: Sinus rhythm PATTERN CONSISTENT WITH PULMONARY DISEASE LEFT ANTERIOR FASCICULAR BLOCK ABNORMAL ECG PREVIOUS TRACING : 02/17/2017 11.18 Compared to prior tracing no significant change DOCTOR: Jaya Whatley Interpretating Date/Time 02/23/2017 20:44:17
[2017-02-23] MEDS: levETIRAcetam 250 MG TAB PO SCH (21:11)
[2017-02-24] VITALS: BP 136/73; PULSE 52; RESP 20; TEMP 98.1; O2SAT 95
--- NOTE | 2017-02-24 03:47 | RADRPT ---
EXAM DATE/TIME: 02/24/2017 02:33 [facility] COMPARISON: CHEST SINGLE AP, February 23, 2017, 3:20. INDICATIONS : Short of breath. MEDICAL HISTORY : Hypertension. Seizures. SURGICAL HISTORY : Hernia repair. ENCOUNTER: Subsequent ACUITY: 1 day PAIN SCORE: Non-responsive. LOCATION: Bilateral chest FINDINGS: A single view of the chest demonstrates the lungs to be symmetrically aerated without evidence of mas s, infiltrate or effusion. The cardiomediastinal contours are unremarkable. Osseous structures are intact. CONCLUSION: No acute disease. Matias Rivera Jr., MD on February 24, 2017 at 3:45 Board Certified Radiologist. This report was verified electronically.
[2017-02-24 04:00] VITALS: BP 123/58; PULSE 46; RESP 21; TEMP 98; O2SAT 96
[2017-02-24] MEDS ORDERED: CHLORHEXIDINE GLUCONATE 2 % 1 PACK (2 CLOTHS) TOP SCH (04:00)
[2017-02-24 05:17] LABS: AUTOMATED NEUTROPHIL # 6.7 TH/MM3 (1.8-7.7); BASOPHIL # 0.1 TH/MM3 (0-0.2); BASOPHIL % 0.5 % (0.0-2.0); EOSINOPHIL # 0.2 TH/MM3 (0-0.4); EOSINOPHIL % 2.2 % (0.0-4.0); HEMATOCRIT 37.1 % (39.0-51.0); HEMO FLAGS DIFF FINAL; LYMPH % 25.2 % (9.0-44.0); LYMPHOCYTE # 2.6 TH/MM3 (1.0-4.8); MEAN CELL VOLUME 93.9 FL (80.0-100.0); MEAN CORPUSCULAR HEMOGLOBIN 31.2 PG (27.0-34.0); MEAN CORPUSCULAR HGB CONC 33.2 % (32.0-36.0); MONO % 6.8 % (0.0-8.0); NEUT % 65.3 % (16.0-70.0); PLATELET COUNT 144 TH/MM3 (150-450); RED BLOOD COUNT 3.96 MIL/MM3 (4.50-5.90); RED CELL DISTRIBUTION WIDTH 13.9 % (11.6-17.2); WHITE BLOOD COUNT 10.3 TH/MM3 (4.0-11.0)
[2017-02-24 05:53] LABS: ALKALINE PHOSPHATASE 50 U/L (45-117); ALT (GPT) 20 U/L (12-78); ANION GAP 9 MEQ/L (5-15); AST (GOT) 13 U/L (15-37); BICARBONATE 22.4 MEQ/L (21.0-32.0); BLOOD UREA NITROGEN 11 MG/DL (7-18); CHLORIDE 113 MEQ/L (98-107); GLOMERULAR FILTRATION RATE 72 ML/MIN (>89); MAGNESIUM 1.9 MG/DL (1.5-2.5); POTASSIUM 3.2 MEQ/L (3.5-5.1); SODIUM (NA) 144 MEQ/L (136-145); TOTAL BILIRUBIN ADULT 0.8 MG/DL (0.2-1.0)
[2017-02-24 08:00] VITALS: BP 139/66; PULSE 64; RESP 17; TEMP 98.7; O2SAT 97
[2017-02-24] MEDS ORDERED: POTASSIUM CHLORIDE 20 MEQ CONTROLLED RELEASE TAB PO ONE (09:00)
[2017-02-24] MEDS ORDERED: CALCIUM CARBONATE 1.25 GM (CA 500 MG) TAB PO ONE (09:00)
[2017-02-24] MEDS ORDERED: POTASSIUM PHOSPHATE MONOBASIC 500 MG TAB PO ONE (09:15)
[2017-02-24] MEDS: levETIRAcetam 250 MG TAB PO SCH ×2 (10:04→18:49)
[2017-02-24] MEDS: PANTOPRAZOLE SOD 40 MG DELAYED RELEASE TAB PO SCH (10:05)
[2017-02-24] MEDS: DOCUSATE SODIUM 50 MG/SENNA 8.6 MG TAB PO SCH (10:06)
[2017-02-24] MEDS: SODIUM CHLORIDE 0.9% FLUSH 10 ML FLUSH SCH (10:06)
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
[2017-02-24 12:00] VITALS: BP 125/82; PULSE 56; RESP 25; TEMP 98.6; O2SAT 95
--- NOTE | 2017-02-24 14:44 | HHI.PR ---
Review/Management Diagnosis 1. Breakthrough seizures. 2. History of seizures. 3. Non compliance with seizure medications. Plan - Patient is stable from the neurology [place] Neurologic exam is non focal Neurologic investigations are unremarkable for an acute intracranial abnormality Keppra 750 mg Q12h Seizure precautions Advised and emphasize importance of medication compliance Follow up with outpatient neurology Please call for questions Diagnosis/Plan: Subjective Subjective Comments No reported seizures Patient denies headache, twitches, lightheadedness MRI brain is unremarkable for an acute intracranial abnormality EEG with no evidence of an ictal activity Patient admits one more time to be non-complaint Active Medications Current Medications Medications (Trade) Dose Ordered Sig/Donte Route Start Time Stop Time Status Last Admin (Protonix) 40 mg DAILY PO 02/23/17 09:00 02/24/17 10:05 (Apresoline Inj) 20 mg Q4H PRN IV PUSH 02/23/17 04:30 (Keppra) 750 mg Q12HR PO 02/23/17 21:00 02/24/17 10:04 Allergies Allergies Coded Allergies acetaminophen (Verified Allergy, Mild, SICK TO MY STOMACH, 02/23/17) Uncoded Allergies CODEINE ( Allergy, Unknown, 02/12/03) Review of Systems All other ROS: ROS reviewed as documented in chart Exam I&O / VS Vital Signs Date Time Temp Pulse Resp B/P (MAP) Pulse Ox O2 Delivery O2 Flow Rate FiO2 02/24/17 08:00 98.7 64 17 139/66 (90) 97 02/24/17 08:00 64 02/24/17 08:00 Room Air 97 02/24/17 04:00 98.0 46 21 123/58 (79) 96 02/24/17 00:00 98.1 52 20 136/73 (94) 95 02/23/17 23:00 52 02/23/17 22:00 93 02/23/17 20:00 98.0 53 20 126/67 (86) 95 02/23/17 19:00 Nasal Cannula 2.00 99 02/23/17 16:00 98.0 58 20 131/71 (91) 93 02/23/17 16:00 Nasal Cannula 4.00 93 02/23/17 16:00 58 General: Alert and Oriented, No acute distress Eye: Vision unchanged Respiratory: Lungs CTA Cardiology: Normal rate Neurologic: Alert, Oriented, Normal sensory, Normal motor, No focal defects, Normal DTR's Psychiatric: Cooperative, Appropriate mood & affect Objective Radiology Results Last 72 hours Impressions Chest X-Ray 02/24/17 0600 Signed Impressions: Service Date/Time: February 02:33 - CONCLUSION: No acute disease. Matias Rivera Jr., MD Chest X-Ray 02/23/17 0315 Signed Impressions: Service Date/Time: Thursday, February 23, 2017 03:20 - CONCLUSION: Bilateral pulmonary infiltrates particularly on the left. Matias Rivera Jr., MD Head CT 02/23/17 0000 Signed Impressions: Service Date/Time: Thursday, February 23, 2017 03:25 - CONCLUSION: Small solitary focus of high attenuation involving the left occipital lobe. This could relate to a tiny intraparenchymal hemorrhage. Short term followup CT brain suggested. Matias Rivera Jr., MD Brain MRI 02/23/17 0000 Signed Impressions: Service Date/Time: Thursday, February 23, 2017 09:57 - CONCLUSION: Negative MRI of the brain. Seizure focus is not identified. Lack of intravenous gadolinium does limit sensitivity for subtle inflammatory processes such as encephalitis. Correlation with EEG is suggested. Marcus Dale MD [facility] Laboratory Tests Test 02/24/17 04:13 White Blood Count 10.3 Red Blood Count 3.96 Hemoglobin 12.3 Hematocrit 37.1 Mean Corpuscular Volume 93.9 Mean Corpuscular Hemoglobin 31.2 Mean Corpuscular Hemoglobin Concent 33.2 Red Cell Distribution Width 13.9 Platelet Count 144 Mean Platelet Volume 9.1 Neutrophils (%) (Auto) 65.3 Lymphocytes (%) (Auto) 25.2 Monocytes (%) (Auto) 6.8 Eosinophils (%) (Auto) 2.2 Basophils (%) (Auto) 0.5 Neutrophils # (Auto) 6.7 Lymphocytes # (Auto) 2.6 Monocytes # (Auto) 0.7 Eosinophils # (Auto) 0.2 Basophils # (Auto) 0.1 CBC Comment DIFF FINAL Differential Comment Blood Urea Nitrogen 11 Creatinine 1.04 Random Glucose 89 Total Protein 5.5 Albumin 2.9 Calcium Level 7.8 Phosphorus Level 1.9 Magnesium Level 1.9 Alkaline Phosphatase 50 Aspartate Amino Transf (AST/SGOT) 13 Alanine Aminotransferase (ALT/SGPT) 20 Total Bilirubin 0.8 Sodium Level 144 Potassium Level 3.2 Chloride Level 113 Carbon Dioxide Level 22.4 Anion Gap 9 Estimat Glomerular Filtration Rate 72 Date/Time Source Procedure Growth Status 02/23/17 04:34 Blood Peripheral Aerobic Blood Culture - Preliminary NO GROWTH IN 1 DAY Resulted 02/23/17 04:34 Blood Peripheral Anaerobic Blood Culture - Preliminary NO GROWTH IN 1 DAY Resulted Paul Esteban MD Feb 24, 2017 14:44
[2017-02-24 16:00] VITALS: BP 141/92; PULSE 69; RESP 23; TEMP 98.3; O2SAT 98
[2017-02-24] MEDS ORDERED: LEVE250 PO (16:35)
--- NOTE | 2017-02-24 16:38 | HHI.DS ---
Discharge Summary Admission Date Feb 23, 2017 at 04:10 Discharge Date: Feb 24, 2017 Admitting Diagnosis Status epilepticus, ich (1) Seizure ICD Code: R56.9 - Unspecified convulsions Diagnosis: Principal Status: Acute (2) Status epilepticus ICD Code: G40.901 - Epilepsy, unspecified, not intractable, with status epilepticus Diagnosis: Principal Status: Acute Procedures EEG Brief History - From Admission 66-year-old male was seen in emergency room yesterday for episodes of seizure but returns to emergency room after being discharged from the ER tonight after he had a seizure episode. He comes back with another seizure. During patient' s initial ER visit, he was observed for 2.5 hours and was given Keppra bolus as patient has history of seizures and takes Keppra 500mg daily. Patient returns to emergency room after he was discharged - EMS reports that he was found on the couch seizing. Reports that patient had a seizure which lasted for about 4- 5 minutes. Patient at this time did have episode of urinary and incontinence of bowel. Patient now with no complaints at this time. He is alert and oriented x 3. CBC/BMP: 02/24/17 0413 02/24/17 0413 Significant Findings Laboratory Tests Test 02/23/17 04:30 02/23/17 05:02 02/23/17 06:10 02/24/17 04:13 Red Blood Count 3.96 MIL/MM3 (4.50-5.90) Hemoglobin 12.3 GM/DL (13.0-17.0) Hematocrit 37.1 % (39.0-51.0) Platelet Count 144 TH/MM3 (150-450) Total Protein 5.5 GM/DL (6.4-8.2) Albumin 2.9 GM/DL (3.4-5.0) Calcium Level 7.8 MG/DL (8.5-10.1) Phosphorus Level 1.9 MG/DL (2.5-4.9) Aspartate Amino Transf (AST/SGOT) 13 U/L (15-37) Potassium Level 3.2 MEQ/L (3.5-5.1) Chloride Level 113 MEQ/L (98-107) Estimat Glomerular Filtration Rate 72 ML/MIN (>89) Hospital Course Mr. Garza is a 66 year old male admitted with seizures. He has a pre-existing seizure disorder. He admits to missing doses of his Keppra as an outpatient. Etiology may be related to missed dosing. With resumption of his Keppra here he has had resolution of his seizures. Dosing has been increased to 750mg BID. Neurology has cleared the patient today for discharge. Electrolyte disturbances present this morning, likely disrupted from seizures and treatments. Replacements provided and patient is medically stable and clear for discharge to home today. Pt Condition on Discharge: Stable Discharge Disposition: Discharge Home Discharge Time: <= 30 minutes Discharge Instructions DIET: Follow Instructions for: As Tolerated, No Restrictions Activities you can perform: Regular-No Restrictions Follow up Referrals: Neurology - 4 Weeks PCP Follow-up - 2 Weeks New Medications: Levetiracetam (Keppra) 250 Mg Tab 750 MG PO Q12HR for Seizure Control, #60 TAB Continued Medications: Lisinopril (Lisinopril) 30 Mg Tab 30 MG PO DAILY for Blood Pressure Management, #30 TAB 0 Refills Pantoprazole (Protonix) 40 Mg Tab 40 MG PO DAILY for Reflux, #30 TAB 0 Refills [Mri L. Shoulder] () 0 Refills MRI OF L. SHOULDER TO EVALUATE FOR POSSIBLE ROTATOR CUFF INJURY Discontinued Medications: Levetiracetam (Keppra) 500 Mg Tab 500 MG PO DAILY for Control Seizures, #60 TAB 0 Refills Misael Menendez MD Feb 24, 2017 16:38
== END 2017-02-24 18:55 | disposition home or self-care (01) | DRG 101 ==
LOC: NEPC 03:00 → NEDA 04:10 → N03B 06:02
PROVIDERS: ADMIT Hospitalist; ATTEND Hospitalist
DX: G40.901 Epilepsy, unspecified, not intractable, with status epilepticus (principal); N17.9 Acute kidney failure, unspecified; E86.0 Dehydration; Z91.14 Patient's other noncompliance with medication regimen; Z79.899 Other long term (current) drug therapy
CPT/HCPCS: 70450; 70551; 71010; 80048; 80053; 81001; 82550; 83735; 84100; 85025; 85610; 87040; 87641; 93005; 95819; 96365; 96374; 96375; J0456; J0696; J1953; J2060; J2405; J7030; J7050; Q2009

== ENCOUNTER 2017-03-02 20:40 | Emergency (ER) | payer MEDICARE, OTHER ==
[~2017-03-02] VITALS: Ht 165.1 cm; Wt 80.0 kg
[~2017-03-02 20:40] MED LIST changes: +LEVE250 PO; -LEVE500 PO; -ZOFR4TAB3 SL
[2017-03-02 20:41] VITALS: BP 187/88; PULSE 64; RESP 16; TEMP 97.7; O2SAT 98
[2017-03-02 22:10] VITALS: BP 172/100; PULSE 70; RESP 17; O2SAT 100
[2017-03-02] MEDS ORDERED: SODIUM CHLORIDE 0.9% FLUSH 5 ML FLUSH IV FLUSH PRN (22:45)
[2017-03-02 22:51] LABS: AUTOMATED NEUTROPHIL # 5.7 TH/MM3 (1.8-7.7); BASOPHIL # 0.1 TH/MM3 (0-0.2); EOSINOPHIL # 0.3 TH/MM3 (0-0.4); EOSINOPHIL % 2.9 % (0.0-4.0); HEMO FLAGS DIFF FINAL; LYMPH % 30.1 % (9.0-44.0); MEAN CELL VOLUME 92.9 FL (80.0-100.0); MEAN CORPUSCULAR HEMOGLOBIN 31.7 PG (27.0-34.0); MEAN CORPUSCULAR HGB CONC 34.1 % (32.0-36.0); MONO % 8.3 % (0.0-8.0); NEUT % 57.7 % (16.0-70.0); PLATELET COUNT 235 TH/MM3 (150-450); RED BLOOD COUNT 4.53 MIL/MM3 (4.50-5.90); RED CELL DISTRIBUTION WIDTH 13.7 % (11.6-17.2); WHITE BLOOD COUNT 9.9 TH/MM3 (4.0-11.0)
[2017-03-02 23:00] VITALS: BP 165/86; PULSE 54; RESP 17; O2SAT 97
--- NOTE | 2017-03-02 23:04 | RADRPT ---
EXAM DATE/TIME: 03/02/2017 22:38 [facility] COMPARISON: No previous studies available for comparison. INDICATIONS : Weakness. MEDICAL HISTORY : Hypertension. SURGICAL HISTORY : Hernia repair. ENCOUNTER: Initial ACUITY: 1 day PAIN SCORE: 0/10 LOCATION: Bilateral chest FINDINGS: A single view of the chest demonstrates the lungs to be symmetrically aerated without evidence of mas s, infiltrate or effusion. The cardiomediastinal contours are unremarkable. Osseous structures are intact. CONCLUSION: No evidence of acute cardiopulmonary disease. Ronen Valiente MD on March 02, 2017 at 23:02 Board Certified Radiologist. This report was verified electronically.
[2017-03-02 23:05] LABS: APTT (PATIENT) 24.4 SEC (24.3-30.1); PROTHROMBIN TIME - PATIENT 11.1 SEC (9.8-11.6)
[2017-03-02 23:07] LABS: ALT (GPT) 16 U/L (12-78); ANION GAP 6 MEQ/L (5-15); AST (GOT) 13 U/L (15-37); BLOOD UREA NITROGEN 14 MG/DL (7-18); CHLORIDE 108 MEQ/L (98-107); GLOMERULAR FILTRATION RATE 63 ML/MIN (>89); POTASSIUM 4.1 MEQ/L (3.5-5.1); SODIUM (NA) 143 MEQ/L (136-145)
[2017-03-02 23:12] LABS: ACETAMINOPHEN LESS THAN 2.0 MCG/ML (10.0-30.0); ALCOHOL LESS THAN 3 MG/DL (0-5)
[2017-03-02 23:17] LABS: ALKALINE PHOSPHATASE 67 U/L (45-117); TOTAL BILIRUBIN ADULT 0.6 MG/DL (0.2-1.0)
[2017-03-02 23:22] LABS: BLOOD, URINE NEG (NEG); COMMENT (UR) CATH-CULT NOT IND; CULTURE IF INDICATED CATH CULTURE NOT IND; GLUCOSE,URINE NEG (NEG); KETONE, URINE NEG (NEG); NITRITE,URINE NEG (NEG); URINE COLOR YELLOW (YELLW/STRAW)
[2017-03-02 23:33] VITALS: O2SAT 97
--- NOTE | 2017-03-02 23:41 | RADRPT ---
EXAM DATE/TIME: 03/02/2017 23:03 [facility] COMPARISON: CT BRAIN W/O CONTRAST, February 23, 2017, 3:25. INDICATIONS : Altered mental status. RADIATION DOSE: 56.35 CTDIvol (mGy) MEDICAL HISTORY : Seizures. Hypertension. SURGICAL HISTORY : None. ENCOUNTER: Initial ACUITY: 1 day PAIN SCALE: 0/10 LOCATION: cranial TECHNIQUE: Multiple contiguous axial images were obtained of the head. Using automated exposure control and adj ustment of the mA and/or kV according to patient size, radiation dose was kept as low as reasonably a chievable to obtain optimal diagnostic quality images. DICOM format image data is available electro nically for review and comparison. FINDINGS: CEREBRUM: The ventricles are normal for age. No evidence of midline shift, mass lesion, hemorrhage or acute in farction. No extra-axial fluid collections are seen. POSTERIOR FOSSA: The cerebellum and brainstem are intact. The 4th ventricle is midline. The cerebellopontine angle i s unremarkable. EXTRACRANIAL: The visualized portion of the orbits is intact. SKULL: The calvaria is intact. No evidence of skull fracture. CONCLUSION: 1. No acute intracranial abnormality. Leonard Hook MD on March 02, 2017 at 23:37 Board Certified Radiologist. This report was verified electronically.
[2017-03-03] VITALS: BP 148/85; PULSE 55; RESP 17; O2SAT 97
--- NOTE | 2017-03-03 00:27 | PD ---
HPI Chief Complaint: Medical Clearance Time Seen by Provider: 22:29 Travel History International Travel<30 days: No Contact w/Intl Traveler<30days: No Traveled to known affect area: No History of Present Illness HPI The patient is a 66 year old male who presents to the [facility] emergency department with a history of after cutting the grass today he felt spacey and like he was losing focus. He was sweaty at the time. He reports he was just discharged from the hospital after an admission to the intensive care unit for seizure activity. The patient reports that he is taking Keppra 750 mg twice daily as recommended. He reports that this is the first physical activity that he's done since being discharged. The patient reports that since arriving in the emergency department in the air conditioning his symptoms have completely resolved. He denies having any seizure activity since discharge from the hospital. On review of systems, he denies any recent fevers, cough, congestion , neck pain, chest pain, shortness of breath, abdominal pain, vomiting, diarrhea , urinary symptoms, or other neurologic symptoms. [facility] Past Medical History Narrative Medical The patient's past medical history is significant for seizures. Cardiovascular Problems: No Diminished Hearing: No GERD: Yes Hypertension: Yes Neurologic: Yes Respiratory: Yes Seizures: Yes Past Surgical History Narrative Surgical The patient's past surgical history is significant for right hernia repair Abdominal Surgery: Yes (RT HERNIA REPAIR) Other Surgery: Yes Social History Alcohol Use: Yes (seldom) Tobacco Use: No Substance Use: Yes (Marijuana daily) Allergies-Medications (Allergen,Severity, Reaction): Coded Allergies: acetaminophen (Verified Allergy, Mild, SICK TO MY STOMACH, 03/02/17) Uncoded Allergies: CODEINE (Allergy, Unknown, 02/12/03) Reported Meds & Prescriptions Reported Meds & Active Scripts Active Keppra (Levetiracetam) 250 Mg Tab 750 Mg PO Q12HR Protonix (Pantoprazole Sodium) 40 Mg Tab 40 Mg PO DAILY [Mri L. Shoulder] MRI OF L. SHOULDER TO EVALUATE FOR POSSIBLE ROTATOR CUFF INJURY Reported Lisinopril 30 Mg Tab 30 Mg PO DAILY Review of Systems Except as stated in HPI: all other systems reviewed are Neg General / Constitutional: No: Fever Eyes: No: Visual changes HENT: No: Headaches, Rhinorrhea, Congestion Cardiovascular: Positive: Diaphoresis, No: Chest Pain or Discomfort Respiratory: No: Cough, Shortness of Breath Gastrointestinal: No: Nausea, Vomiting, Diarrhea, Abdominal Pain, Changes in Bowel Habits (last bm this morning) Genitourinary: No: Dysuria Musculoskeletal: No: Pain Skin: No Rash Neurologic: No: Weakness, Focal Abnormalities, Change in Mentation, Slurred Speech, Seizures, Sensory Disturbance Psychiatric: No: Depression Endocrine: No: Polydipsia Hematologic/Lymphatic: No: Easy Bruising Physical Exam Narrative General: The patient is a well-developed well-nourished male in no acute distress. Head and Neck exam: Head is normocephalic atraumatic. Eyes: EOMI, pupils are equal round and reactive to light. Nose: Midline septum with pink mucous membranes Mouth: Dentition unremarkable. Moist mucus membranes. Posterior oropharynx is not erythematous. No tonsillar hypertrophy. Uvula midline. Airway patent. Neck: No palpable lymphadenopathy. No nuchal rigidity. No thyromegaly. Cardiovascular: Regular rate and rhythm without murmurs, gallops, or rubs. Lungs: Clear to auscultation bilaterally. No wheezes, rhonchi, or rales. Abdomen: Soft, without tenderness to palpation in all 4 quadrants of the abdomen. No guarding, rebound, or rigidity. Normal bowel sounds are audible. No tenderness on palpation of McBurney's point. Extremities: No clubbing, cyanosis, or edema. 2+ pulses in all 4 extremities. No calf tenderness on palpation. Back: No spinous process tenderness to palpation. No costovertebral angle tenderness to palpation. Neurologic Exam: Grossly nonfocal. Skin Exam: No rash noted. Intact skin that is warm and dry. Data Data Last Documented VS Vital Signs Date Time Temp Pulse Resp B/P (MAP) Pulse Ox O2 Delivery O2 Flow Rate FiO2 03/03/17 01:40 59 16 155/80 (105) 96 03/03/17 00:00 Room Air 03/02/17 20:41 97.7 Orders Orders Electrocardiogram (03/02/17 22:35) Ammonia (03/02/17 22:35) Complete Blood Count With Diff (03/02/17 22:35) Comprehensive Metabolic Panel (03/02/17 22:35) Prothrombin Time / Inr (Pt) (03/02/17 22:35) Act Partial Throm Time (Ptt) (03/02/17 22:35) Thyroid Stimulating Hormone (03/02/17 22:35) Urinalysis - C+S If Indicated (03/02/17 22:35) Chest, Single Ap (03/02/17 22:35) Ct Brain W/O Iv Contrast(Rout) (03/02/17 22:35) Blood Glucose (03/02/17 22:35) Ecg Monitoring (03/02/17 22:35) Iv Access Insert/Monitor (03/02/17 22:35) Oximetry (03/02/17 22:35) Sodium Chloride 0.9% Flush (Ns Flush) (03/02/17 22:45) Drug Screen, Random Urine (03/02/17 22:35) Alcohol (Ethanol) (03/02/17 22:35) Tylenol (Acetaminophen) (03/02/17 22:35) Salicylates (Aspirin) (03/02/17 22:35) Morphine Inj (Morphine Inj) (03/03/17 01:45) Ondansetron Inj (Zofran Inj) (03/03/17 01:45) Labs Laboratory Tests Test 03/02/17 22:40 03/02/17 23:00 White Blood Count 9.9 TH/MM3 Red Blood Count 4.53 MIL/MM3 Hemoglobin 14.3 GM/DL Hematocrit 42.0 % Mean Corpuscular Volume 92.9 FL Mean Corpuscular Hemoglobin 31.7 PG Mean Corpuscular Hemoglobin Concent 34.1 % Red Cell Distribution Width 13.7 % Platelet Count 235 TH/MM3 Mean Platelet Volume 8.9 FL Neutrophils (%) (Auto) 57.7 % Lymphocytes (%) (Auto) 30.1 % Monocytes (%) (Auto) 8.3 % Eosinophils (%) (Auto) 2.9 % Basophils (%) (Auto) 1.0 % Neutrophils # (Auto) 5.7 TH/MM3 Lymphocytes # (Auto) 3.0 TH/MM3 Monocytes # (Auto) 0.8 TH/MM3 Eosinophils # (Auto) 0.3 TH/MM3 Basophils # (Auto) 0.1 TH/MM3 CBC Comment DIFF FINAL Differential Comment Prothrombin Time 11.1 SEC Prothromb Time International Ratio 1.0 RATIO Activated Partial Thromboplast Time 24.4 SEC Blood Urea Nitrogen 14 MG/DL Creatinine 1.17 MG/DL Random Glucose 92 MG/DL Total Protein 7.0 GM/DL Albumin 3.8 GM/DL Calcium Level 8.7 MG/DL Alkaline Phosphatase 67 U/L Aspartate Amino Transf (AST/SGOT) 13 U/L Alanine Aminotransferase (ALT/SGPT) 16 U/L Total Bilirubin 0.6 MG/DL Sodium Level 143 MEQ/L Potassium Level 4.1 MEQ/L Chloride Level 108 MEQ/L Carbon Dioxide Level 29.0 MEQ/L Anion Gap 6 MEQ/L Estimat Glomerular Filtration Rate 63 ML/MIN Ammonia 45 MCMOL/L Thyroid Stimulating Hormone 3rd Gen 2.600 uIU/ML Salicylates Level LESS THAN 1.7 MG/DL Acetaminophen Level LESS THAN 2.0 MCG/ML Ethyl Alcohol Level LESS THAN 3 MG/DL Urine Color YELLOW Urine Turbidity CLEAR Urine pH 6.0 Urine Specific [place] 1.017 Urine Protein NEG mg/dL Urine Glucose (UA) NEG mg/dL Urine Ketones NEG mg/dL Urine Occult Blood NEG Urine Nitrite NEG Urine Bilirubin NEG Urine Urobilinogen 8.0 MG/DL Urine Leukocyte Esterase NEG Urine RBC LESS THAN 1 /hpf Urine WBC 1 /hpf Microscopic Urinalysis Comment CATH-CULT NOT IND Urine Opiates Screen NEG Urine Barbiturates Screen NEG Urine Amphetamines Screen NEG Urine Benzodiazepines Screen NEG Urine Cocaine Screen NEG Urine Cannabinoids Screen POS MDM Medical Decision Making Medical Screen Exam Complete: Yes Emergency Medical Condition: Yes Medical Record Reviewed: Yes Interpretation(s) Last Impressions Head CT 03/02/172234 Signed Impressions: Service Date/Time: Thursday, March 02, 2017 23:03 - CONCLUSION: 1. No acute intracranial abnormality. Leonard Hook MD Chest X-Ray 03/02/172234 Signed Impressions: Service Date/Time: Thursday, March 02, 2017 22:38 - CONCLUSION: No evidence of acute cardiopulmonary disease. Ronen Valiente MD Differential Diagnosis Heat exhaustion, versus heat stroke, versus electrolyte derangements, versus dehydration Narrative Course During the course of the patients emergency department visit, the patients history, examination, and differential diagnosis were reviewed with the patient. The patient had IV access obtained and blood work sent for analysis. The patient's was on a attending urologist with oximetry and blood pressure monitoring. An ECG was done on arrival. The patient's ECG reveals a sinus bradycardia heart rate of 55, no acute ST segment elevation or depression, T waves are inverted in V1 and lead 3, QRS duration is 90 ms, QTC is 415 ms. The patients laboratory studies were reviewed and remarkable for a CBC that is unremarkable, CMP is remarkable for chloride of 108, GFR 63, AST 13, TSH 2.60, ammonia level is slightly elevated at 45, however this may be medication related , as the patient on examination has no findings consistent with hepatic encephalopathy. PT 11.1, PTT 24.4, urinalysis is unremarkable. Urine drug screen is positive for cannabinoid, salicylate less than 1.7, acetaminophen less than 2, alcohol level less than 3. Radiology studies were reviewed and remarkable for a chest x-ray that shows no acute cardiopulmonary disease. CT scan of the brain shows no acute abnormality. The patient is resting comfortably and feels better, is alert and in no distress. The patients results and examination findings were discussed with the patient. The repeat examination is unremarkable and benign. The history, exam, diagnostic testing, and current condition do not suggest any significant pathology to warrant further testing, continued ED treatment, admission, or surgical evaluation at this point. The vital signs have been stable. The patient does not have uncontrollable pain, intractable vomiting, or other significant symptoms. The patient's condition is stable and appropriate for discharge. The patient will pursue further outpatient evaluation with a primary care physician or other designated or consulting physician as indicated in the discharge instructions. The patient expressed understanding and was agreeable with this plan. Diagnosis Primary Impression: Heat exhaustion Qualified Codes: T67.5XXA - Heat exhaustion, unspecified, initial encounter Referrals: Primary Care Physician 2 days Patient Instructions: General Instructions, Heat Exhaustion (ED) Additional Instructions: The patient is instructed to push fluids and get plenty of rest. The patient is instructed to Lesly is hydration when he is outdoors. Med/Other Pt SpecificInfo: No Change to Meds Disposition: 01 DISCHARGE HOME Condition: Stable Gloria Galvan MD Mar 03, 2017 00:27
[2017-03-03 01:40] VITALS: BP 155/80
[2017-03-03] MEDS ORDERED: ONDANSETRON HCL 4 MG/2 ML VIAL IV PUSH ONE (01:45)
[2017-03-03] MEDS ORDERED: MORPHINE SULFATE 4 MG/ML INJ IV PUSH ONE (01:45)
--- NOTE | 2017-03-03 17:14 | EKG ---
Date Performed: 03/02/2017 Time Performed: 23:28:12 PTAGE: 66 years EKG: SINUS BRADYCARDIA PATTERN CONSISTENT WITH PULMONARY DISEASE LEFT ANTERIOR FASCICULAR BLOCK ABNORMAL ECG Since PREVIOUS TRACING , no significant change noted PREVIOUS TRACIN02/23/2017 04.06 DOCTOR: Sonali Soto Interpretating Date/Time 03/03/2017 17:13:21
== END 2017-03-03 01:50 | disposition home or self-care (01) ==
LOC: NEPC 20:40
DX: T67.5XXA Heat exhaustion, unspecified, initial encounter (principal); X30.XXXA Exposure to excessive natural heat, initial encounter; Y93.H2 Activity, gardening and landscaping; Y92.007 Garden or yard of unspecified non-institutional (private) residence as the place of occurrence of the external cause; I10 Essential (primary) hypertension; G40.909 Epilepsy, unspecified, not intractable, without status epilepticus; K21.9 Gastro-esophageal reflux disease without esophagitis; R94.31 Abnormal electrocardiogram [ECG] [EKG]
CPT/HCPCS: 70450; 71010; 80053; 80307; 81001; 82140; 84443; 85025; 85610; 85730; 93005; 99285

== ENCOUNTER 2018-04-13 20:23 | Observation (INO) ==
[2018-04-13] MEDS ORDERED: levETIRAcetam 500 MG Tablet PO ONE (20:37)
--- NOTE | 2018-04-13 20:41 | ED ---
HPI General Chief Complaint: Chest Pain Stated Complaint: chest pain Time Seen by Provider: 04/13/18 20:32 Source: patient Mode of arrival: ambulatory Limitations: no limitations History of Present Illness MD complaint: Reports chest pain STEMI Alert: No Duration: intermittent Onset: during rest and during exertion Pain location: Reports left chest Severity: moderate Quality: Reports tightness and aching Pain radiation: Reports none Relieving factors: rest Exacerbating factors: exertion Context: Denies recent illness, recent surgery, recent immobilization, recent travel, trauma/injury, new medications and history of DVT/PE Associated symptoms: Denies nausea, vomiting, diaphoresis, dyspnea, sense of impending doom, syncope, palpitations, fever, cough and leg swelling Treatments prior to arrival chest pain: Reports none Related Data Home Medications Medication Instructions Recorded Confirmed levetiracetam [Keppra] 750 mg PO BID 04/13/18 04/13/18 lisinopril 20 mg PO DAILY 04/13/18 04/13/18 Allergies Allergy/AdvReac Type Severity Reaction Status Date / Time acetaminophen Allergy Mild SICK TO MY Verified 04/13/18 20:34 STOMACH CODEINE Allergy Unknown Vomiting Uncoded 04/13/18 20:34 Review of Systems ROS: all other systems reviewed are negative [facility] Medical History Medical History Hypertension (Acute) Seizures (Acute) Social History Social History Substance History: No History of Abuse Smoking Status: Never smoker How Often Do You Have a Drink Containing Alcohol: Monthly or less Recent Travel in [facility] within the Last 8 Weeks: No Recent Out of Country Travel within the Last 8 Weeks: No Immunization History Tetanus Immunization: <5 Years Tetanus Immunization Year if Known: 2017 Exam Narrative Exam Narrative: GENERAL: Well-nourished, well-developed patient. SKIN: Focused skin assessment warm/dry. HEAD: Normocephalic. EYES: No scleral icterus. No injection or drainage. NECK: Supple, trachea midline. No JVD or lymphadenopathy. CARDIOVASCULAR: Regular rate and rhythm without murmurs, gallops, or rubs. RESPIRATORY: Breath sounds equal bilaterally. No accessory muscle use. GASTROINTESTINAL: Abdomen soft, non-tender, nondistended. MUSCULOSKELETAL: No cyanosis, or edema. BACK: Nontender without obvious deformity. No CVA tenderness. Course Initial Documented Vital Signs Temperature 98.1 F 04/13/18 20:25 Pulse Rate 68 04/13/18 20:25 Respiratory Rate 18 04/13/18 20:25 Blood Pressure 167/90 H 04/13/18 20:25 Pulse Oximetry 97 04/13/18 20:25 Last Documented Vital Signs Temperature 98.1 F 04/13/18 20:25 Pulse Rate 68 04/13/18 20:25 Respiratory Rate 18 04/13/18 20:25 Blood Pressure 167/90 H 04/13/18 20:25 Pulse Oximetry 97 04/13/18 20:25 Medical Decision Making MDM Narrative Medical decision making narrative: 67-year-old male with history of hypertension presents to the emergency department complaint of chest pain intermittently all all day long. Patient states symptoms seem to be related to exertion. Some relief of symptoms with rest. Patient rates discomfort 7/10 in intensity. Patient states he has had an evaluation for similar type pain approximately a year ago but does not believe it was at this hospital. Patient denies known history of dyslipidemia or diabetes and denies tobacco use. Patient had no associated symptoms. Patient placed on personnel monitor IV access obtained specimens collections of resulting EKG performed shows sinus rhythm with no acute ST elevation or injury pattern. Patient given sublingual nitroglycerin with improvement of chest discomfort but refused additional nitroglycerin received aspirin 162 mg Troponin I less than 0.02, not elevated Patient will be admitted to chest pain center per protocol risk factors male age 67 hypertension and chest pain that improved after receiving sublingual nitroglycerin. Medical Screen Exam Complete: Yes Emergency Medical Condition: Yes Differential Diagnosis Differential Diagnosis: Chest pain, atypical chest pain, ACS, [place], dissection, aneurysm, pleurisy, costochondritis, PE, musculoskeletal, Medical Records Medical records reviewed: Yes I reviewed the patient's medical records. Lab Data Lab results reviewed: Yes I reviewed the patient's lab results. Result diagrams: 04/13/18 21:00 04/13/18 21:00 Lab Results 04/13/18 04/13/18 Range/Units 21:00 21:00 WBC 9.9 (4.0-11.0) th/mm3 RBC 4.45 L (4.50-5.90) mil/mm3 Hgb 14.5 (13.0-17.0) gm/dL Hct 41.4 (39.0-51.0) % MCV 93.0 (80.0-100.0) fL MCH 32.5 (27.0-34.0) pg MCHC 34.9 (32.0-36.0) % RDW 13.4 (11.6-17.2) % Plt Count 197 (150-450) th/mm3 MPV 9.1 (7.0-11.0) fL Neut % (Auto) 63.0 (16.0-70.0) % Lymph % (Auto) 29.2 (9.0-44.0) % [place] % (Auto) 5.9 (0.0-8.0) % Eos % (Auto) 1.0 (0.0-4.0) % Baso % (Auto) 0.9 (0.0-2.0) % Neut # (Auto) 6.3 (1.8-7.7) th/mm3 Lymph # (Auto) 2.9 (1.0-4.8) th/mm3 [place] # (Auto) 0.6 (0.0-0.9) th/mm3 Eos # (Auto) 0.1 (0.0-0.4) th/mm3 Baso # (Auto) 0.1 (0.0-0.2) th/mm3 WBC Differential . Differential Comment Auto diff final Sodium 142 (136-145) meq/L Potassium 3.9 (3.5-5.1) meq/L Chloride 106 (98-107) meq/L Carbon Dioxide 26.8 (21.0-32.0) meq/L Anion Gap 9 (5-15) meq/L BUN 17 (7-18) mg/dL Creatinine 1.41 H (0.60-1.30) mg/dL Estimated GFR 50 L (>89) mL/min Random Glucose 118 H (74-106) mg/dL Calcium 8.7 (8.5-10.1) mg/dL Magnesium 1.9 (1.5-2.5) mg/dL Total Bilirubin 0.7 (0.2-1.0) mg/dL AST 22 (15-37) U/L ALT 25 (12-78) U/L Alkaline Phosphatase 52 (45-117) U/L Troponin I Less than 0.02 L (0.02-0.05) ng/mL Total Protein 6.8 (6.4-8.2) g/dL Albumin 3.9 (3.4-5.0) g/dL Lipase 202 (73-393) U/L Imaging Data Radiologist's impression: Chest X-Ray 04/13/18 20:37 CONCLUSION: Negative examination. ECG Data EKG Prior to Arrival: No Attestation: I personally reviewed and interpreted this ECG as follows: (EKG normal sinus rhythm rate 68 left anterior fascicular block no acute ST elevation or injury pattern change noted) Discharge Plan Discharge Disposition Patient Disposition: 30 Still Patient Discharge Condition Condition: Stable Discharge Details Diagnosis: Chest pain, H/O tonic-clonic seizures Physicians Team ED Provider: Rosemarie Chester Primary Care Provider: Primary Care [place] Lilly Rxs /Orders / Referrals /Forms Prescriptions: No Action levetiracetam [Keppra] 750 mg Tablet 750 mg PO BID RF: 0 lisinopril 20 mg Tablet 20 mg PO DAILY RF: 0 Discharge Instructions Patient Printed Instructions: Chest Pain (ED) Status ED Status: With Doctor
--- NOTE | 2018-04-13 20:58 | XR ---
EXAM DATE: 04/13/2018 8:54 PM EST AGE/SEX: 67 years / Male INDICATIONS: Chest pain. CLINICAL DATA: This is the patient's initial encounter. Patient reports that signs and symptoms have been present for 1 day and indicates a pain score of 7/10. MEDICAL/SURGICAL HISTORY: Hypertension. Seizures. None. COMPARISON: [facility] [place], CHEST SINGLE AP, 03/02/2017. . FINDINGS: A single AP view of the chest demonstrates the lungs to be symmetrically aerated without evidence of mass, infiltrate or effusion. The cardiomediastinal contours are unremarkable. Osseous structures a re intact. CONCLUSION: Negative examination. Electronically signed by: Deni Padron MD 04/13/2018 8:56 PM EST
[2018-04-13 21:08] LABS: Baso # (Auto) 0.1 th/mm3 (0.0-0.2); Baso % (Auto) 0.9 % (0.0-2.0); Eos # (Auto) 0.1 th/mm3 (0.0-0.4); Hematocrit 41.4 % (39.0-51.0); Hemoglobin 14.5 gm/dL (13.0-17.0); Lymph # (Auto) 2.9 th/mm3 (1.0-4.8); Lymph % (Auto) 29.2 % (9.0-44.0); Mean Corpuscular HGB Conc 34.9 % (32.0-36.0); Mean Corpuscular Hemoglobin 32.5 pg (27.0-34.0); Mean Platelet Volume 9.1 fL (7.0-11.0); Mono # (Auto) 0.6 th/mm3 (0.0-0.9); Mono % (Auto) 5.9 % (0.0-8.0); Neut # (Auto) 6.3 th/mm3 (1.8-7.7); Platelet Count 197 th/mm3 (150-450); Red Blood Count 4.45 mil/mm3 (4.50-5.90); Red Cell Distribution Width 13.4 % (11.6-17.2); White Blood Count 9.9 th/mm3 (4.0-11.0)
[2018-04-13 21:48] LABS: Alanine Aminotransferase 25 U/L (12-78); Albumin 3.9 g/dL (3.4-5.0); Anion Gap 9 meq/L (5-15); Aspartate Aminotransferase 22 U/L (15-37); Blood Urea Nitrogen 17 mg/dL (7-18); Calcium 8.7 mg/dL (8.5-10.1); Carbon Dioxide 26.8 meq/L (21.0-32.0); Chloride 106 meq/L (98-107); Glomerular Filtration Rate 50 mL/min (>89); Glucose,Random 118 mg/dL (74-106); Lipase 202 U/L (73-393); Magnesium 1.9 mg/dL (1.5-2.5); Potassium 3.9 meq/L (3.5-5.1); Sodium 142 meq/L (136-145)
[2018-04-13 21:52] LABS: Alkaline Phosphatase 52 U/L (45-117); Total Protein 6.8 g/dL (6.4-8.2)
[2018-04-14 01:32] LABS: Creatine Kinase 73 U/L (39-308)
[2018-04-14 03:23] LABS: Creatine Kinase 69 U/L (39-308)
[2018-04-14] MEDS ORDERED: Lisinopril 20 MG Tablet PO SCH (09:00)
[2018-04-14] MEDS ORDERED: levETIRAcetam 250 MG Tablet PO SCH (09:00)
[2018-04-14] MEDS ORDERED: Aspirin 325 MG Tablet PO SCH (09:00)
--- NOTE | 2018-04-14 09:54 | P.HPCA ---
History of Present Illness Primary Care Physician: No Primary Care Physician Chief Complaint: Chest pain History of Present Illness: This is a 67-year-old male the presents to ED with a complaint of a tightness/ achiness in the center/left of his chest. This began yesterday while he was working on his car. He is also dizzy. Denies nausea, diaphoresis, or shortness of breath. The nothing to worsen or improve. He no longer has it. States he has had a similar episode before. States he was told it was related to anxiety. States he had a heart catheterization about 1 year ago and he was told that there were no blockages. History of hypertension and seizure disorder. Denies CAD, hyperlipidemia, and diabetes. Denies family history of CAD. Lifetime cigarette non-smoker. He does smoke marijuana. - Diagnosis (1) Chest pain (2) Hypertension Review of Systems General: Patient denies fevers, chills, and recent travel. HEENT: Patient denies headache, sore throat, difficulty swallowing. Cardiovascular: Has the chest discomfort as mentioned above. Denies sensation of heart beating rapidly or irregularly. No syncope. Denies diaphoresis. Respiratory: Denies shortness of breath or inspirational chest discomfort. Denies coughing wheezing or hemoptysis. GI: Patient denies nausea, vomiting, diarrhea, abdominal pain, bloody stools. Musculoskeletal: Patient denies joint pain or edema. Denies calf pain or edema. Neurovascular: Patient denies numbness, tingling, weakness in extremities. Denies headache. Endocrine: Denies polyuria and polydipsia. Hematologic: Denies easy bruising. Skin: Denies rash or itching. PMFSH - History History Provided By: Patient - Medical History Medical History: Medical History (Last Reviewed 04/13/18 @ 23:28 by Rosemarie Chester MD) Hypertension Seizures - Tobacco History Second Hand Smoke Exposure: No Smoking Status: Never smoker - Alcohol History How Often Do You Have a Drink Containing Alcohol: Never - Substance Use History Substance History: No History of Abuse - Travel History Recent Travel in the [place] Within the Last 8 Weeks: No Recent Travel Out of the Country Within the Last 8 Weeks: No - Immunization History Tetanus Immunization: <5 Years Tetanus Immunization Year if Known: 2017 Medications and Allergies Active Medications: Active Medications Aspirin (Aspirin) 325 mg PO DAILY [facility]ER Last Admin: 04/14/18 09:30 Dose: 325 mg Levetiracetam (Keppra) 750 mg PO BID [facility] Last Admin: 04/14/18 09:30 Dose: 750 mg Lisinopril (Prinivil) 20 mg PO DAILY [facility] Last Admin: 04/14/18 09:30 Dose: 20 mg Nitroglycerin (Nitrostat Sl) 0.4 mg SL Q5M PRN PRN Reason: CHEST PAIN Sodium Chloride (Ns Flush) 2 ml IV.FLUSH UNSCH PRN PRN Reason: FLUSH AFTER USING IV ACCESS Sodium Chloride (Ns Flush) 2 ml IV.FLUSH BID [facility] Last Admin: 04/14/18 09:30 Dose: 2 ml Sodium Chloride (Ns Flush) 2 ml IV.FLUSH PRN PRN PRN Reason: FLUSH AFTER USING IV ACCESS Allergies Allergy/AdvReac Type Severity Reaction Status Date / Time acetaminophen Allergy Mild SICK TO MY Verified 04/13/18 20:34 STOMACH CODEINE Allergy Unknown Vomiting Uncoded 04/13/18 20:34 Home Medications Medication Instructions Recorded Confirmed Type levetiracetam [Keppra] 750 mg PO BID 04/13/18 04/13/18 History lisinopril 20 mg PO DAILY 04/13/18 04/13/18 History Exam Vital signs: Vital Signs 04/13/18 20:25 04/14/18 00:00 04/14/18 01:16 Temperature 98.1 F 98.1 F Pulse Rate 68 49 L Respiratory Rate 18 17 Blood Pressure 167/90 H 156/78 H 132/73 Pulse Oximetry 97 97 04/14/18 02:54 04/14/18 08:00 Temperature 97.8 F 98.1 F Pulse Rate 47 L 66 Respiratory Rate 17 17 Blood Pressure 156/82 H 159/94 H Pulse Oximetry 96 97 Intake & Output 04/13/18 04/14/18 04/14/18 18:59 06:59 18:59 Weight 74.389 kg Other: Date of Last Bowel Movement 04/13/18 Weight On Admission 74.389 kg Narrative: GENERAL: This is a well-nourished, well-developed patient, in no apparent distress. Patient speaks in clear complete sentences. Patient is pleasant. HEENT: Head is atraumatic and normocephalic. Neck is supple without lymphadenopathy and trachea is midline. No JVD or carotid bruits. CARDIOVASCULAR: Regular rate and rhythm without murmurs, gallops, or rubs. RESPIRATORY: Clear to auscultation. Breath sounds equal bilaterally. No wheezes , rales, or rhonchi. Chest wall is nontender. No use of accessory muscles. GASTROINTESTINAL: Abdomen is nontender, nondistended. Abdomen soft. No obvious pulsatile mass or bruit. No CVA tenderness. Strong femoral pulses bilaterally. Normal bowel sounds in all quadrants. MUSCULOSKELETAL: Patient is moving upper and lower extremities freely. No calf tenderness or edema, no Homans sign. Strong pulses in upper and lower extremities. NEUROLOGICAL: Patient is alert and oriented. Cranial nerves 2-12 are grossly intact. No focal deficits and speech is clear. SKIN: No rash and turgor is normal. Results 04/13/18 21:00 04/13/18 21:00 Cardiac Enzymes 04/13/18 04/14/18 04/14/18 Range/Units 21:00 00:15 02:26 AST 22 (15-37) U/L Troponin I Less than 0.02 L Less than 0.02 L Less than 0.02 L (0.02-0.05) ng/mL CBC 04/13/18 Range/Units 21:00 WBC 9.9 (4.0-11.0) th/mm3 RBC 4.45 L (4.50-5.90) mil/mm3 Hgb 14.5 (13.0-17.0) gm/dL Hct 41.4 (39.0-51.0) % Plt Count 197 (150-450) th/mm3 Neut # (Auto) 6.3 (1.8-7.7) th/mm3 Lymph # (Auto) 2.9 (1.0-4.8) th/mm3 Tift # (Auto) 0.6 (0.0-0.9) th/mm3 Eos # (Auto) 0.1 (0.0-0.4) th/mm3 Baso # (Auto) 0.1 (0.0-0.2) th/mm3 Comprehensive Metabolic Panel 04/13/18 Range/Units 21:00 Sodium 142 (136-145) meq/L Potassium 3.9 (3.5-5.1) meq/L Chloride 106 (98-107) meq/L Carbon Dioxide 26.8 (21.0-32.0) meq/L BUN 17 (7-18) mg/dL Creatinine 1.41 H (0.60-1.30) mg/dL Calcium 8.7 (8.5-10.1) mg/dL AST 22 (15-37) U/L ALT 25 (12-78) U/L Alkaline Phosphatase 52 (45-117) U/L Total Protein 6.8 (6.4-8.2) g/dL Albumin 3.9 (3.4-5.0) g/dL Intake and Output 04/13/18 04/14/18 04/14/18 22:59 06:59 14:59 Other: Date of Last Bowel Movement 04/13/18 Weight 74.389 kg 74.389 kg Weight On Admission 74.389 kg - Imaging and Cardiology Imaging: Impressions Chest X-Ray 04/13/18 20:37 CONCLUSION: Negative examination. EKG interpretations - EKG EKG shows: sinus rhythm (EKGs are sinus rhythm without significant ST segment depressions or elevations.) Caprini VTE Risk Assessment Caprini VTE Risk Assessment: Moderate/High Risk (score >= 2) Caprini Risk Assessment Model: Point Value = 1 Point Value = 2 Point Value = 3 Point Value = 5 Age 41-60 Minor surgery BMI > 25 kg/m2 Swollen legs Varicose veins or History of unexplained or recurrent spontaneous Oral contraceptives or hormone replacement Sepsis (< 1 month) Serious lung disease, including pneumonia (< 1 month) Abnormal pulmonary function Acute myocardial infarction Congestive heart failure (< 1 month) History of inflammatory bowel disease Medical patient at bed rest Age 61-74 Arthroscopic surgery Major open surgery (> 45 min) Laparoscopic surgery (> 45 min) Malignancy Confined to bed (> 72 hours) Immobilizing plaster cast Central venous access Age >= 75 History of VTE Family history of VTE Factor V Leiden Prothrombin [id number] Lupus anticoagulant Anticardiolipin antibodies Elevated serum homocysteine Heparin-induced thrombocytopenia Other congenital or acquired thrombophilia Stroke (< 1 month) Elective arthroplasty Hip, pelvis, or leg fracture Acute spinal cord injury (< 1 month) Prophylaxis Regimen: Total Risk Factor Score Risk Level Prophylaxis Regimen 0-1 Low Early ambulation 2 Moderate Order ONE of the following: *Sequential Compression Device (SCD) *Heparin 5000 units SQ BID 3-4 Higher Order ONE of the following medications: *Heparin 5000 units SQ TID *Enoxaparin/Lovenox 40 mg SQ daily (WT < 150 kg, CrCl > 30 mL/min) *Enoxaparin/Lovenox 30 mg SQ daily (WT < 150 kg, CrCl > 10-29 mL/min) *Enoxaparin/Lovenox 30 mg SQ BID (WT < 150 kg, CrCl > 30 mL/min) AND/OR *Sequential Compression Device (SCD) 5 or more Highest Order ONE of the following medications: *Heparin 5000 units SQ TID (Preferred with Epidurals) *Enoxaparin/Lovenox 40 mg SQ daily (WT < 150 kg, CrCl > 30 mL/min) *Enoxaparin/Lovenox 30 mg SQ daily (WT < 150 kg, CrCl > 10-29 mL/min) *Enoxaparin/Lovenox 30 mg SQ BID (WT < 150 kg, CrCl > 30 mL/min) AND *Sequential Compression Device (SCD) Assessment and Plan - Assessment (1) Chest pain Code(s): R07.9 - Chest pain, unspecified Status: Acute (2) Hypertension Code(s): I10 - Essential (primary) hypertension Status: Acute - Plan * Chest pain: Patient has had serial cardiac enzymes and EKGs for ruling out purposes. He also has been seen by Dr. Soto of cardiology in the chest pain center. He reports having a heart catheterization 1 year ago and was told that there were no blockages. We are awaiting records and if this is confirmed he will be discharged home with instructions to follow-up with PCP. Return to ED for interval issues. * Hypertension: Continue medication. Patient is stable at this time. He is agreeable to this plan. H&P: Quality - VTE Deep Vein Thrombosis/Pulmonary Embolism Present on Admission: No (1) Chest pain Qualifiers: Chest pain type: precordial pain Qualified Code(s): R07.2 - Precordial pain
[2018-04-14] MEDS ORDERED: Regadenoson Inj 0.4 MG/5 ML Syringe IV.PUSH ONE (13:11)
[2018-04-14 13:36] VITALS: BP 137/87; PULSE 54; RESP 18; TEMP 97.9; O2SAT 98
--- NOTE | 2018-04-14 14:13 | NM ---
EXAM DATE: 04/14/2018 2:08 PM EST AGE/SEX: 67 years / Male INDICATIONS:Angina. . left chest pain with dizziness. CLINICAL DATA: This is the patient's initial encounter. Patient reports that signs and symptoms have been present for 1 day and indicates a pain score of 3/10. MEDICAL/SURGICAL HISTORY: Hypertension. Seizures. None. Cardiac catherization. COMPARISON: No prior exams available for comparison. DOSE: 8.5 mCi Tc 99m Myoview at rest 27.3 mCi [id number] at stress 0.4 mg Lexiscan STRESS SYMPTOMS: Dyspnea and headache. EJECTION FRACTION: 57 % TECHNIQUE: The patient underwent pharmacologic stress with infusion of prescribed dose. Continuous ECG tracing was monitored during stress. Gated SPECT imaging was performed after stress and conventi onal SPECT imaging was performed at rest. The examination was performed on a SPECT/CT scanner, both attenuation and non-corrected datasets were reviewed. FINDINGS: Distribution: The maximum perfused segment at stress is in the anterolateral wall. Perfusion Study: Very mild focal reversible changes in the anteroseptal rodrigues near the apex. Gated Study: There are intact wall motion and wall thickening without hypokinetic or dyskinetic segm ents. The ejection fraction is calculated at 57%. RISK CATEGORY: Low (<1% Annual Motality Rate) CONCLUSION: 1. Very mild focal stress-induced ischemia in the anteroseptal wall near the apex. 2. Intact wall motion with EF of 57%. Electronically signed by: Arcenio Hinton MD 04/14/2018 2:12 PM EST
--- NOTE | 2018-04-14 14:58 | ECG ---
Date Performed: 04/14/2018 Time Performed: 02:51:36 PTAGE: 67 years EKG: SINUS BRADYCARDIA MARKED LEFT AXIS DEVIATION PATTERN CONSISTENT WITH PULMONARY DISEASE ABNO RMAL ECG Since PREVIOUS TRACING , no significant change noted PREVIOUS TRACIN04/14/2018 00.18 DOCTOR: Sonali Soto Interpretating Date/Time 04/14/2018 14:57:31
--- NOTE | 2018-04-14 14:58 | TR ---
Date Performed: 04/14/2018 Time Performed: 13:01:25 DOCTOR: Sonali Soto DRUG LIST: CLINICAL HISTORY: REASON FOR TEST: REASON FOR ENDING: OBSERVATION: CONCLUSION: Lexiscan stress test was performed under standard four minute protocol. Radionuclid e was injected one minute prior to ending the test. No electrocardiographic abormalities were present to suggest ischemia. Nuclear imaging and interpretation are pending. COMMENTS: Lexiscan stress test was performed under standard four minute protocol. Radionuclide was injected one minute prior to ending the test. No electrocardiographic abormalities were present t o suggest ischemia. Nuclear imaging and interpretation are pending.
--- NOTE | 2018-04-14 14:59 | ECG ---
Date Performed: 04/13/2018 Time Performed: 20:34:22 PTAGE: 67 years EKG: Sinus rhythm PATTERN CONSISTENT WITH PULMONARY DISEASE LEFT ANTERIOR FASCICULAR BLOCK ABNORMAL ECG Since PREVIOUS TRACING , no significant change noted PREVIOUS TRACIN03/02/2017 23.28 DOCTOR: Sonali Soto Interpretating Date/Time 04/14/2018 14:58:09
--- NOTE | 2018-04-14 14:59 | ECG ---
Date Performed: 04/14/2018 Time Performed: 00:18:01 PTAGE: 67 years EKG: SINUS BRADYCARDIA WITH SHORT MA INTERVAL LEFT ANTERIOR FASCICULAR BLOCK ABNORMAL ECG Since PREVIOUS TRACING , no significant change noted PREVIOUS TRACIN04/13/2018 20.34 DOCTOR: Sonali Soto Interpretating Date/Time 04/14/2018 14:57:56
[2018-04-15] MEDS ORDERED: amLODIPine 5 MG Tablet PO SCH (14:59)
== END 2018-04-14 15:53 | disposition home or self-care (01) ==
LOC: NEDA 20:23 → NEPC 20:23 → NEPFCDU 04-14
PROVIDERS: ADMIT Internal Medicine Interventional Cardiology; ATTEND Internal Medicine Interventional Cardiology